=== PATIENT | female | born 1955 | race Caucasian/White ===

== ENCOUNTER 2020-08-19 10:59 | Outpatient (CLI) | payer OTHER, SELFPAY ==
--- NOTE | 2020-08-19 11:11 | US_ITS ---
WS: [id number] Subcutaneous ultrasound of the neck for lymphadenopathy, 08/19/2020 Clinical Data: R SUPRACLAVICULAR AREA Comparison: None. Findings: There are numerous lymph nodes on both sides of the neck. No cysts or masses are seen. The largest ri ght lymph node measures 0.69 x 0.99 x 1.08 cm. The largest left lymph node measures 0.62 x 0.67 x 0.9 3 cm. 5 lymph nodes measured on the right and 2 on the left. US/US soft tissue/extremity [id number] Impression: Lymphadenopathy of both sides of the neck, but the lymph nodes are not greatly enlarged.
== END 2020-08-19 11:00 | disposition home or self-care (01) ==
LOC: US 11:05
PROVIDERS: PCP Nurse Practitioner Family; Visit Provider Nurse Practitioner Family
DX: R59.0 Localized enlarged lymph nodes (principal)
CPT/HCPCS: 76882

== ENCOUNTER 2021-05-21 12:37 | Emergency (ER) | payer OTHER, SELFPAY ==
[2021-05-21 13:12] VITALS: BP 178/64; PULSE 79; RESP 19; TEMP 37.2; O2SAT 98; BMI 30.9
--- NOTE | 2021-05-21 14:04 | ED_ITS ---
HPI - Allergic Reaction General: Chief complaint: Allergic Reaction Stated complaint: RASH ON WAIST, BACK, BUTTOCKS, GROIN Time Seen by Provider: 05/21/21 13:24 History of Present Illness: HPI narrative: Patient recently treated for allergic reaction possibly to psych medicines. Patient has spots on her back left hip groin and leg areas. That have itch. Patient denies hives. Patient says she did better on higher dose of prednisone quit taking her cetirizine now she has itching again. MD complaint: other (Itching rash) Onset (ago): day(s) Exposure: insect bite (Patient does have 7 cats. Does have animals at present with scratching) Associated symptoms: Reports no associated symptoms; Deny abdominal pain, nausea or vomiting Treatment prior to arrival: other Review of Systems Const: Denies: fever(s), chills or body aches Eyes: Denies: change in vision or blurry vision ENMT: Denies: throat pain or nasal congestion Card: Denies: chest pain or dyspnea on exertion Resp: Denies: dyspnea, productive cough or non-productive cough GI: Denies: abdominal pain, nausea or vomiting Musc: Denies: extremity pain Skin/Breast: Reports: rash and pruritus Neuro: Denies: headache(s) Psych: Denies: anxiety or depression Herrera/Lymph: Denies: easy bruising Physical Exam Const: COMMON NORMALS: no acute distress Psych: COMMON NORMALS: mental status grossly normal Skin: OTHER: Does have scattered maculopapular areas consistent with insect bites. No hives noted. And these bites are no particular pattern. Peer to be more the left side posterior. Course Vital Signs: Vital signs: Vital Signs Temperature 98.9 F 05/21/21 13:12 Pulse Rate 79 05/21/21 13:12 Respiratory Rate 19 H 05/21/21 13:12 Blood Pressure 178/64 05/21/21 13:12 Pulse Oximetry 98 05/21/21 13:12 Discharge Plan Discharge Patient Disposition: Home Clinical Impression: Bites and stings, insect Qualifiers: Encounter type: initial encounter Qualified Code(s): W57.XXXA - Bitten or stung by nonvenomous insect and other nonvenomous arthropods, initial encounter Condition: Stable Prescriptions: New triamcinolone acetonide 0.1 % lotion 1 applic topical BID Qty: 60 RF: 0 prednisone 20 mg tablet 20 mg PO DAILY Qty: 7 RF: 0 Discharge Orders: Discharge ED (Routine); Ordered 05/21/21 Ordered By: Mayur Garcia Referrals: Barbara Underwood NP [Primary Care Provider] - Discharge Diet: Usual diet Discharge Activity: Resume usual activity Activity Restrictions/Additional Instructions: Follow-up with medical provider as directed. Take medications as prescribed. Return to the ER or your medical provider if condition worsens. Please read and understand discharge instructions. If any questions ask please. Coding Level of Care Code ED Helicopter Repairer for Johnny Mcgowan
== END 2021-05-21 14:23 | disposition home or self-care (01) ==
PROVIDERS: Emergency Provider Nurse Practitioner Family; PCP Nurse Practitioner Family
DX: T14.8XXA Other injury of unspecified body region, initial encounter (principal); W57.XXXA Bitten or stung by nonvenomous insect and other nonvenomous arthropods, initial encounter
CPT/HCPCS: 99281

== ENCOUNTER 2021-08-30 16:18 | Outpatient (CLI) | payer MEDICARE, OTHER, SELFPAY ==
--- NOTE | 2021-08-30 16:26 | XR_ITS ---
WS: [id number] LEFT KNEE: 3 VIEW(S) TECHNIQUE: AP, oblique(s) and lateral. HISTORY: PAIN IN LEFT KNEE COMPARISON: None available. No fracture or dislocation. No joint space narrowing or osteophytes. No joint effusion. No soft tissue abnormality. XR/XR knee LT 3V* [id number] IMPRESSION: Normal LEFT knee.
== END 2021-08-30 16:19 | disposition home or self-care (01) ==
PROVIDERS: PCP Nurse Practitioner Family; Visit Provider Nurse Practitioner Family
DX: M25.562 Pain in left knee (principal)
CPT/HCPCS: 73562

== ENCOUNTER 2021-08-31 16:04 | Outpatient (CLI) | payer MEDICARE, SELFPAY ==
--- NOTE | 2021-08-31 | USCV_ITS ---
Clara Rajput Age: 65 Gender: F : 1955 Exam Date: 08/31/2021 16:36 Ordering Phys: Barbara Underwood NP Technologist: [place] [facility] [place] Indication: EDEMA, LEFT PROCEDURES: Venous duplex imaging was performed in only the left lower extremity. The following venous structures were evaluated: common femoral vein, profunda vein, proximal portion of the greater saphenous vein, superficial femoral vein, and the popliteal vein. In addition, the posterior tibial and peroneal trunk were evaluated. Serial compression, augmentation maneuvers, and spectral Doppler flow evaluation were performed. FINDINGS: Normal 2-D Doppler and augmentation and compressibility throughout the lower extremity venous structures. Additional imaging through the proximal calf veins also reveals no thrombus. Limited evaluation of the greater saphenous vein is patent with no thrombus.. There appears to be a bakers cyst noted medial to the left popliteal vein. CONCLUSIONS No evidence of left lower extremity DVT. Popliteal cyst measuring 2.5 x 1.8 x 3.9 cm with internal debris and septations Jace Faustin MD (Electronically Signed) Final Date: 01 September 2021 10:46 S
== END 2021-08-31 16:05 | disposition home or self-care (01) ==
LOC: RAD 16:11
PROVIDERS: PCP Nurse Practitioner Family; Visit Provider Nurse Practitioner Family
DX: R60.0 Localized edema (principal); M71.22 Synovial cyst of popliteal space [Baker], left knee
CPT/HCPCS: 93971

== ENCOUNTER 2022-01-23 13:11 | Outpatient (CLI) | payer MEDICARE, OTHER, SELFPAY ==
--- NOTE | 2022-01-23 13:20 | MM_ITS ---
WS: [id number] VIEWS: MLO and CC views both breasts. 3-D tomosynthesis also included in the study Comparison made with prior exam of 11/25/2014. Findings: There was no sign of mass, architectural distortion or suspicious calcification in either breast. Sc attered fibroglandular densities MM/[place] [id number] Impression: BI-RADS: 2-Benign FOLLOW-UP: 1 Year Follow-up This mammogram was also analyzed by the Computer Aided Detection System R2 Imag e Service Desk Lead.
== END 2022-01-23 13:12 | disposition home or self-care (01) ==
LOC: RAD 13:14
PROVIDERS: PCP Nurse Practitioner Family; Visit Provider Nurse Practitioner Family
DX: Z12.31 Encounter for screening mammogram for malignant neoplasm of breast (principal)
CPT/HCPCS: 77063; 77067

== ENCOUNTER 2022-03-09 22:18 | Emergency (ER) | payer MEDICARE, OTHER, SELFPAY ==
[2022-03-09 22:54] VITALS: BP 150/71; PULSE 83; RESP 20; TEMP 36.7; O2SAT 98; BMI 29.0
[2022-03-09 22:59] VITALS: BP 152/70; PULSE 81; RESP 18; O2SAT 96
--- NOTE | 2022-03-09 23:06 | ED_ITS ---
HPI - General Adult General: Chief complaint: General Medical Stated complaint: Snake bite on right ankle Time Seen by Provider: 03/09/22 23:03 Source: patient Mode of arrival: ambulatory Limitations: no limitations History of Present Illness: 66-year-old female who was bit by a copperhead snake little over an hour ago. States she was walking on her garage and got bit to her left ankle. She believes it was a copperhead but did not see it fully does have 2 puncture wounds some slight swelling to the ankle she states she has pain in ankle she rates a 4 out of 10 denies any pain elsewhere no vomiting no diarrhea Associated symptoms: Deny chest pain, dyspnea, headache(s), nausea, rash or vomiting Review of Systems Const: Denies: fever(s), chills, body aches or change in appetite Eyes: Denies: blurry vision or eye discomfort ENMT: Denies: throat pain or dental pain Card: Denies: chest pain Resp: Denies: dyspnea GI: Denies: abdominal pain, nausea, vomiting or diarrhea : Denies: dysuria Musc: Reports: extremity pain Skin/Breast: Denies: rash Neuro: Denies: headache(s) Psych: Denies: depression Herrera/Lymph: Denies: easy bruising All/Imm: Denies: urticaria PFSH ED PFSH: Medical History (Updated 03/10/22 @ 00:29 by Gustavo Ledezma MD) Hypertension Social History Smoking and tobacco status: current every day smoker Physical Exam Const: COMMON NORMALS: no acute distress, patient oriented x3 and healthy appearing HENMT: COMMON NORMALS: normocephalic and atraumatic HEAD & SCALP: normocephalic and atraumatic Eye: COMMON NORMALS: Equal, round and reactive pupils present and EOMs intact bilaterally PUPIL: Yes Equal, round and reactive pupils present Neck/C-Spine: COMMON NORMALS: full ROM and supple Chest: COMMONS NORMALS: normal inspection of the chest and normal palpation of entire chest wall Resp: COMMON NORMALS: normal respiratory effort, No retractions, No use of accessory muscles and clear to auscultation bilaterally AUSCULTATION: clear to auscultation bilaterally Cardio: COMMON NORMALS: regular rate, regular rhythm and No murmurs present (Cardio) RATE: regular rate RHYTHM: regular rhythm GI: COMMON NORMALS: Normal to inspection, nondistended, normoactive bowel sounds present, Soft to palpation, non-tender and no masses PALPATION: Yes Soft to palpation Extremity: NARRATIVE EXTREMITY EXAM: Snake bite to left medial ankle slight swelling is minimal at this time Neuro: COMMON NORMALS: patient oriented x3, moves all extremities and no focal motor deficits Psych: COMMON NORMALS: mental status grossly normal, Normal thought process present and cooperative THOUGHT PROCESS: Normal thought process present Skin: COMMON NORMALS: no rashes or lesions noted and no wounds GENERAL SKIN EXAM: no rashes or lesions noted Course Vital Signs: Vital signs: Vital Signs Temperature 98.1 F 03/09/22 22:54 Pulse Rate 83 03/09/22 22:54 Respiratory Rate 18 03/09/22 23:48 Blood Pressure 150/71 03/09/22 22:54 Pulse Oximetry 96 03/09/22 23:48 MDM - General Adult Medical Decision Making Patient presents with a snakebite to right foot observed here for over 2 hours she has had no change in her swelling is very minimal blood work is normal she stable for discharge follow-up with PCP and return if worsening Lab Data : 03/09/22 23:05 03/09/22 23:05 Laboratory Results WBC 10.9 10^3/uL (4.0-10.0) H 03/09/22 23:05 RBC 4.67 10^6/uL (4.1-5.3) 03/09/22 23:05 Hgb 14.0 g/dL (11.5-15.3) 03/09/22 23:05 Hct 42.2 % (37.0-47.0) 03/09/22 23:05 MCV 90.4 fl (81-99) 03/09/22 23:05 MCH 30.0 pg (28.0-34.0) 03/09/22 23:05 MCHC 33.2 g/dL (30.0-36.0) 03/09/22 23:05 RDW 13.5 % (12.1-15.1) 03/09/22 23:05 Plt Count 298 10^3/cmm (130-400) 03/09/22 23:05 MPV 10.1 fL (7.4-10.4) 03/09/22 23:05 Neut % (Auto) 48.9 % 03/09/22 23:05 Lymph % (Auto) 38.2 % 03/09/22 23:05 [place] % (Auto) 8.2 % 03/09/22 23:05 Eos % (Auto) 3.9 % 03/09/22 23:05 Baso % (Auto) 0.6 % 03/09/22 23:05 Neut # (Auto) 5.34 10^3/uL (1.8-7.7) 03/09/22 23:05 Lymph # (Auto) 4.2 10^3/uL (0.8-4.8) 03/09/22 23:05 [place] # (Auto) 0.9 10^3/uL (0.2-0.9) 03/09/22 23:05 Eos # (Auto) 0.4 10^3/uL (0.0-0.8) 03/09/22 23:05 Baso # (Auto) 0.1 10^3/uL (0.0-0.1) 03/09/22 23:05 Nucleated RBC % (auto) 0 % 03/09/22 23:05 Nucleated RBCs # 0.0 /100WBC 03/09/22 23:05 PT 13.40 SECONDS (12.1-14.9) 03/09/22 23:05 INR 0.99 (0.8-1.2) 03/09/22 23:05 Sodium 138 mmol/L (136-145) 03/09/22 23:05 Potassium 4.0 mmol/L (3.5-5.1) 03/09/22 23:05 Chloride 100 mmol/L (98-107) 03/09/22 23:05 Carbon Dioxide 25 mmol/L (22-29) 03/09/22 23:05 Anion Gap 17.0 (5-19) 03/09/22 23:05 BUN 27 mg/dL (8-23) H 03/09/22 23:05 Creatinine 0.8 mg/dL (0.5-0.9) 03/09/22 23:05 GFR Calculation 71.8 mL/min (90-130) L 03/09/22 23:05 Glucose 124 mg/dL (65-115) H 03/09/22 23:05 Calculated Osmolality 293 mOsm/kg (285-295) 03/09/22 23:05 Calcium 9.6 mg/dL (8.5-10.5) 03/09/22 23:05 Total Bilirubin 0.2 mg/dL (0.15-1.2) 03/09/22 23:05 AST 16 U/L (0-32) 03/09/22 23:05 ALT 18 U/L (0-33) 03/09/22 23:05 Alkaline Phosphatase 96 IU/L (35-105) 03/09/22 23:05 Total Protein 7.3 g/dL (6.6-8.7) 03/09/22 23:05 Albumin 4.7 g/dL (3.5-5.2) 03/09/22 23:05 Globulin 2.6 g/dL (1.3-4.6) 03/09/22 23:05 Discharge Plan Discharge Patient Disposition: Home Clinical Impression: Bite, snake Qualifiers: Encounter type: initial encounter Qualified Code(s): W59.11XA - Bitten by nonvenomous snake, initial encounter Condition: Stable Prescriptions: New hydrocodone-acetaminophen 5-325 mg tablet 1 tab PO Q6H PRN (Reason: pain) Qty: 14 0RF No Action valsartan 160 mg tablet 160 mg PO DAILY 0RF amlodipine 10 mg tablet 10 mg PO DAILY 0RF IDAPAMINE 1 tab PO DAILY 0RF buspirone 5 mg tablet 5 mg PO DAILY 0RF gabapentin 300 mg capsule 300 mg PO BID 0RF atorvastatin 40 mg tablet 40 mg PO DAILY 0RF carvedilol 12.5 mg Tablet 12.5 mg PO BID 0RF tramadol 50 mg Tablet 50 mg PO BID PRN (Reason: Pain) 0RF Discharge Orders: Discharge ED (Routine); Ordered 03/10/22 Ordered By: Gustavo Ledezma Referrals: Barbara Underwood NP [Primary Care Provider] - 1-3 days Discharge Diet: Advance as tolerated Discharge Activity: Resume usual activity Patient Instructions: Snake Bite (ED), Opioid Safety Stand Alone Forms: Work/School Release Coding Level of Care Code ED Cna Instructor for [facility] Fwd Exam Comprehensive
[2022-03-09 23:25] LABS: Basophils # 0.1 10^3/uL (0.0-0.1); Basophils % 0.6 %; Eosinophils # 0.4 10^3/uL (0.0-0.8); Eosinophils % 3.9 %; Hematocrit 42.2 % (37.0-47.0); Lymphocytes # 4.2 10^3/uL (0.8-4.8); Lymphocytes % 38.2 %; Mean Corpuscular HGB Conc 33.2 g/dL (30.0-36.0); Mean Corpuscular Volume 90.4 fl (81-99); Mean Platelet Volume 10.1 fL (7.4-10.4); Monocytes # 0.9 10^3/uL (0.2-0.9); Monocytes % 8.2 %; Neutrophils # 5.34 10^3/uL (1.8-7.7); Neutrophils % 48.9 %; Nucleated Red Blood Cells % 0 %; Platelet Count 298 10^3/cmm (130-400); Red Blood Count 4.67 10^6/uL (4.1-5.3); Red Cell Distribution Width 13.5 % (12.1-15.1); White Blood Count 10.9 10^3/uL (4.0-10.0)
[2022-03-09 23:29] VITALS: BP 159/62; PULSE 77; RESP 18; O2SAT 96
[2022-03-09 23:30] VITALS: BP 158/58; PULSE 72; RESP 18; O2SAT 95
[2022-03-09 23:36] LABS: INR 0.99 (0.8-1.2)
[2022-03-09 23:40] LABS: Alanine Aminotransferase 18 U/L (0-33); Albumin Level 4.7 g/dL (3.5-5.2); Alkaline Phosphatase 96 IU/L (35-105); Aspartate Amino Transferase 16 U/L (0-32); Blood Urea Nitrogen 27 mg/dL (8-23); Calcium 9.6 mg/dL (8.5-10.5); Carbon Dioxide 25 mmol/L (22-29); Chloride 100 mmol/L (98-107); Globulin 2.6 g/dL (1.3-4.6); Glomerular Filtration Rate 71.8 mL/min (90-130); Glucose 124 mg/dL (65-115); Osmolality Calculated 293 mOsm/kg (285-295); Sodium 138 mmol/L (136-145); Total Bilirubin 0.2 mg/dL (0.15-1.2); Total Protein 7.3 g/dL (6.6-8.7)
[2022-03-09 23:48] VITALS: RESP 18; O2SAT 96
[2022-03-09] MEDS: ondansetron 2 mg/ML SDV 2 mL 4 MG IVP (23:48)
[2022-03-09] MEDS: morphine 4 mg/mL SDV 1 mL IVP (23:48)
[2022-03-09 23:59] VITALS: BP 156/69; PULSE 81; RESP 18; O2SAT 94
[2022-03-10] VITALS: BP 161/69; PULSE 77; RESP 18; O2SAT 95
[2022-03-10 00:40] VITALS: BP 144/76; PULSE 76; RESP 18; O2SAT 94
[2022-03-10] MEDS: HYDROcodone-acetaminophen 5-325 mg Tablet 1 TAB PO (00:45)
== END 2022-03-10 00:40 | disposition home or self-care (01) ==
PROVIDERS: Emergency Provider Emergency Medicine; PCP Nurse Practitioner Family
DX: T63.001A Toxic effect of unspecified snake venom, accidental (unintentional), initial encounter (principal); I10 Essential (primary) hypertension
CPT/HCPCS: 80053; 85025; 85610; 96374; 96375; 99284; J2270; J2405

== ENCOUNTER 2022-03-27 12:57 | Outpatient (CLI) | payer MEDICARE, OTHER, SELFPAY ==
--- NOTE | 2022-03-27 | CT_ITS ---
WS: [id number] LDCT LUNG CANCER SCREENING TECHNIQUE: Noncontrast CT of the chest with coronal and sagittal reformatted images. CLINICAL INFORMATION: SCREENING. TOBACCO USER COMPARISON: None. DLP: 72.52 mGy.cm DIvol: Mean CTDIvol: 1.60 (mGy) All CT scans at [facility] use at least one of these dose optimization techniques: automat ed exposure control; mA and/or kV adjustment per patient size (includes targeted exams where dose is matched to clinical indication); or iterative reconstruction. FINDINGS: Mild aortic calcification. Normal caliber thoracic aorta. No mediastinal or hilar lymphadenopathy. No axillary lymphadenopathy. Adrenal glands are normal. Normal GE junction. Mild thoracic curve. Multiple noncalcified pulmonary opacities the largest measuring 6-7 mm RIGHT lower lobe and LEFT uppe r lobe. Some of these are subpleural in location and may be inflammatory/fibrotic but nonspecific. Re commend 3 month follow-up LDCT. Fibrosis with subsegmental atelectasis in the RIGHT middle lobe with slight traction bronchiectasis. CT/CT lung screening [id number] IMPRESSION: LUNG-RADS: 4A-Probably Suspicious FOLLOW UP: 3 Month LDCT
== END 2022-03-27 12:58 | disposition home or self-care (01) ==
PROVIDERS: PCP Nurse Practitioner Family; Visit Provider Nurse Practitioner Family
DX: Z12.2 Encounter for screening for malignant neoplasm of respiratory organs (principal); F17.210 Nicotine dependence, cigarettes, uncomplicated
CPT/HCPCS: 71271

== ENCOUNTER 2023-01-04 07:38 | Outpatient (CLI) | payer MEDICARE, OTHER, SELFPAY ==
--- NOTE | 2023-01-04 07:52 | CT_ITS ---
WS: [id number] LDCT LUNG CANCER SCREENING HISTORY: SCREENING/OPACITY OF LUNG ON IMAGING STUDY TECHNIQUE: Axial imaging performed from the apices to 1 cm below the costophrenic angles. Coronal and sagittal reformats are submitted with axial MIP series. All CT scans at [facility] use at least one of these dose optimization techniques: automated exposure control; mA and/or kV adjustment per patient size (includes targeted exams where dose is matched to clinical indication); or iterativ e reconstruction. DLP: 82.47 mGy.cm DIvol: Mean CTDIvol: 1.60 (mGy) COMPARISON: 03/27/2022 Diagnostic quality: Satisfactory Lungs: Multiple bilateral noncalcified pulmonary nodules are reidentified. Bilateral posterior upper lobe pulmonary nodules are unchanged with the largest measuring 6 mm the LEFT upper lobe. RIGHT lower lobe pulmonary nodules are reidentified with the largest measuring 5 mm which are unchanged. New are as of groundglass attenuation in the periphery LEFT lower lobe. By mean diameter these measure less t june 3 cm. Small amount of mucus in the RIGHT trachea. Heart: Normal size heart. No pericardial effusion. Other findings: No adenopathy. Mild atherosclerosis aorta small hiatal hernia. Mild LEFT adrenal thic kening is stable. CT/CT lung screening [id number] IMPRESSION: LUNG-RADS: 3-Probably Benign FOLLOW UP: 6 Month LDCT OTHER FINDINGS (S MODIFIER): None. [address] follow-up recommended to reevaluate the groundglass opacifications w hich are new since 03/27/2022.
== END 2023-01-04 07:39 | disposition home or self-care (01) ==
PROVIDERS: PCP Family Medicine Adult Medicine; Visit Provider Family Medicine Adult Medicine
DX: Z12.2 Encounter for screening for malignant neoplasm of respiratory organs (principal); Z87.891 Personal history of nicotine dependence
CPT/HCPCS: 71271

== ENCOUNTER 2023-08-20 17:40 | Emergency (ER) | payer MEDICARE, OTHER, SELFPAY ==
--- NOTE | 2023-08-20 17:45 | XRR_ITS ---
PROCEDURE INFORMATION: Exam: XR Chest Exam date and time: 08/20/2023 5:51 PM Age: 67 years old Clinical indication: Other: Syncope TECHNIQUE: Imaging protocol: Radiologic exam of the chest. Views: 1 view. COMPARISON: CT lung screening [id number] 01/04/2023 8:07 AM FINDINGS: Lungs: Lungs are clear. Pleural spaces: There is no pleural effusion or pneumothorax. Heart/Mediastinum: Cardiomediastinal contours are unremarkable. Bones/joints: Thoracolumbar scoliosis. Disc degeneration in the upper lumbar spine. No acute osseous abnormality. XR/XR chest 1V portable [id number] IMPRESSION: No acute findings.
[2023-08-20 17:46] VITALS: BP 110/56; PULSE 63; RESP 18; TEMP 36.6; O2SAT 92; BMI 27.6
--- NOTE | 2023-08-20 17:58 | W.ED.NAVMDI ---
HPI - Nausea/Vomiting/Diarrhea General: Chief complaint: Nausea/Vomiting/Diarrhea Stated complaint: near syncope Time Seen by Provider: 08/20/23 17:41 Source: patient and EMS Mode of arrival: EMS Limitations: no limitations History of Present Illness: 67-year-old female states that she had her flu shot this morning states since then she has been having some vomiting diarrhea states she had went to eat tonight and felt lightheaded had a near syncopal event did not pass out though. She denies any fevers denies any abdominal pain she does have a history of asthma states she had some slight increased wheezing she got a breathing treatment in route and feels improved. Associated nausea: Yes Associated symtoms: Reports nausea and syncope; Denies chest pain, dysuria or headache(s) Review of Systems Const: Denies: fever(s), chills, body aches or change in appetite ENMT: Denies: throat pain or dental pain Card: Reports: syncope; Denies: chest pain Resp: Denies: dyspnea GI: Reports: nausea, vomiting and diarrhea; Denies: abdominal pain : Denies: dysuria Musc: Denies: neck pain or back pain Skin/Breast: Denies: rash Neuro: Denies: headache(s) PFSH ED PFSH: Medical History Allergic rhinitis due to allergen Anxiety Asthma Back pain COPD (chronic obstructive pulmonary disease) Early onset macular degeneration GERD (gastroesophageal reflux disease) Hyperlipidemia Hypertension Opacity of lung on imaging study Sciatica SVT (supraventricular tachycardia) Traumatic partial tear of left biceps tendon Surgical History History of cardiac radiofrequency ablation History of tonsillectomy and adenoidectomy Hx of hysterectomy Family History Father Alcoholism Cancer esophageal Mother CAD (coronary artery disease) PR Hypertension Grandfather CAD (coronary artery disease) PR Family/Other CAD (coronary artery disease) PR - uncle and aunt Alcoholism Cancer aunt--esophageal Sister Hypertension Denies family history of Diabetes Clotting disorder Dementia Hyperlipidemia Chronic kidney disease (CKD) Anesthesia complication Bleeding disorder Lung disease Stroke Social History Smoking and tobacco/nicotine status: current every day tobacco/nicotine user (0.5ppd) Alcohol intake: never Substance/Drug Use: never Caregiver/support person: No Lives independently: Yes Household members: none Marital status: Single Highest education level completed: Some College, No Degree service: No Current occupational status: employed 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 Do you think of yourself as: Straight/Heterosexual Current gender identity: Female Nelida/Moravian: Holiness Special nelida needs: No Agree to transfusion: Yes Physical Exam Const: COMMON NORMALS: no acute distress, patient oriented x3 and healthy appearing HENMT: COMMON NORMALS: normocephalic and atraumatic HEAD & SCALP: normocephalic and atraumatic Eye: COMMON NORMALS: Equal, round and reactive pupils present and EOMs intact bilaterally PUPIL: Yes Equal, round and reactive pupils present Neck/C-Spine: COMMON NORMALS: full ROM and supple Chest: COMMONS NORMALS: normal inspection of the chest and normal palpation of entire chest wall Resp: COMMON NORMALS: normal respiratory effort, No retractions and No use of accessory muscles EFFORT & INSPECTION: Yes audible wheezes Cardio: COMMON NORMALS: regular rate, regular rhythm and No murmurs present (Cardio) RATE: regular rate RHYTHM: regular rhythm GI: COMMON NORMALS: Normal to inspection, nondistended, normoactive bowel sounds present, Soft to palpation, non-tender and no masses PALPATION: Yes Soft to palpation Extremity: COMMON NORMALS: normal to inspection and full ROM Neuro: COMMON NORMALS: patient oriented x3, moves all extremities and no focal motor deficits Psych: COMMON NORMALS: mental status grossly normal, Normal thought process present and cooperative THOUGHT PROCESS: Normal thought process present Skin: COMMON NORMALS: no rashes or lesions noted and no wounds GENERAL SKIN EXAM: no rashes or lesions noted Course Vital Signs: Vital signs: Vital Signs Temperature 97.8 F 08/20/23 17:46 Pulse Rate 63 08/20/23 17:46 Respiratory Rate 18 08/20/23 17:46 Blood Pressure 110/56 08/20/23 17:46 Pulse Oximetry 92 08/20/23 17:46 Oxygen Delivery Me thod Room Air 08/20/23 17:46 MDM - Nausea/Vomiting/Diarrhea Medical Decision Making Patient presents here with diarrhea while near syncopal with likely related to her flu shot she feels improved after IV fluids patient stable for discharge to follow-up with PCP and return if worsening she understands agrees to plan. Medical Records I reviewed the patient's medical records. Lab Data I reviewed the patient's lab results. 08/20/23 17:32 08/20/23 17:32 Radiology Impressions Chest X-Ray 08/20/23 17:45 IMPRESSION: No acute findings. Laboratory Results WBC 7.65 10^3/uL (3.29-11.43) 08/20/23 17:32 RBC 4.64 10^6/uL (3.85-5.65) 08/20/23 17:32 Hgb 13.80 g/dL (11.27-16.99) 08/20/23 17: Hct 41.2 % (36-47) 08/20/23 17:32 MCV 88.8 fl (85-98) 08/20/23 17: MCH 29.7 pg (27-33) 08/20/23 17: MCHC 33.5 g/dL (30-55) 08/20/23 17:32 RDW 13.5 % (12.1-15.1) 08/20/23 17:32 Plt Count 273 10^3/cmm (157-399) 08/20/23 17:32 MPV 9.8 fL (7.4-10.4) 08/20/23 17:32 Neut % (Auto) 56.8 % 08/20/23 17:32 Lymph % (Auto) 30.8 % 08/20/23 17:32 [place] % (Auto) 7.7 % 08/20/23 17:32 Eos % (Auto) 3.9 % 08/20/23 17:32 Baso % (Auto) 0.5 % 08/20/23 17:32 Neut # (Auto) 4.34 10^3/uL (1.8-7.7) 08/20/23 17:32 Lymph # (Auto) 2.4 10^3/uL (0.8-4.8) 08/20/23 17:32 [place] # (Auto) 0.6 10^3/uL (0.2-0.9) 08/20/23 17:32 Eos # (Auto) 0.3 10^3/uL (0.0-0.8) 08/20/23 17:32 Baso # (Auto) 0.0 10^3/uL (0.0-0.1) 08/20/23 17:32 Nucleated RBC % (auto) 0 % 08/20/23 17:32 Nucleated RBCs # 0.0 /100WBC 08/20/23 17:32 Sodium 140 mmol/L (136-145) 08/20/23 17:32 Potassium 3.8 mmol/L (3.5-5.1) 08/20/23 17:32 Chloride 105 mmol/L (98-107) 08/20/23 17:32 Carbon Dioxide 25 mmol/L (22-29) 08/20/23 17:32 Anion Gap 13.8 (5-19) 08/20/23 17:32 BUN 23 mg/dL (8-23) 08/20/23 17:32 Creatinine 0.8 mg/dL (0.5-0.9) 08/20/23 17:32 GFR Calculation 71.5 mL/min (90-130) L 08/20/23 17:32 Glucose 120 mg/dL (65-115) H 08/20/23 17:32 Calculated Osmolality 295 mOsm/kg (285-295) 08/20/23 17:32 Calcium 8.7 mg/dL (8.5-10.5) 08/20/23 17:32 Total Bilirubin 0.4 mg/dL (0.15-1.2) 08/20/23 17:32 AST 19 U/L (0-32) 08/20/23 17:32 ALT 19 U/L (0-33) 08/20/23 17:32 Alkaline Phosphatase 67 U/L (35-105) 08/20/23 17:32 Total Protein 6.3 g/dL (6.6-8.7) L 08/20/23 17:32 Albumin 4.1 g/dL (3.5-5.2) 08/20/23 17:32 Globulin 2.2 g/dL (1.3-4.6) 08/20/23 17:32 Lipase 49 U/L (13-60) 08/20/23 17:32 All radiology interpretation(s) finalized by discharge Discharge Plan Discharge Patient Disposition: Home Clinical Impression: Diarrhea, Near syncope Condition: Stable Prescriptions: New ondansetron 4 mg tablet,disintegrating 4 mg PO Q6H PRN (Reason: nausea and vomiting) Qty: 14 0RF No Action carvedilol 25 mg tablet 25 mg PO BID Qty: 180 1RF amlodipine 10 mg tablet 10 mg PO DAILY Qty: 90 1RF atorvastatin 40 mg tablet 40 mg PO DAILY Qty: 90 1RF albuterol sulfate [ProAir HFA] 90 mcg/actuation HFA aerosol inhaler 1 puff inhalation Q4H PRN (Reason: shortness of breath or wheezing) Qty: 17 1RF buspirone 5 mg tablet 5 mg PO TID Qty: 180 1RF clonidine HCl 0.1 mg tablet 0.1 mg PO Q12H PRN (Reason: hypertensive values) Qty: 90 1RF Rx Instructions: prn for BP> 160/90 escitalopram oxalate 10 mg tablet 10 mg PO DAILY Qty: 90 1RF famotidine 20 mg tablet 20 mg PO BID Qty: 180 1RF fluticasone propionate 50 mcg/actuation spray,suspension 2 spray intranasal DAILY Qty: 48 1RF gabapentin 300 mg capsule 300 mg PO TID Qty: 270 1RF hydralazine 10 mg tablet 10 mg PO TID Qty: 270 1RF hydroxyzine HCl 25 mg tablet 25 mg PO TID PRN (Reason: itching/anxiety) Qty: 270 1RF indapamide 1.25 mg tablet 1.25 mg PO DAILY Qty: 90 1RF spironolactone 25 mg tablet 12.5 mg PO DAILY Qty: 45 1RF valsartan 320 mg tablet 320 mg PO DAILY Qty: 90 1RF fluticasone propion-salmeterol [Advair Diskus] 250-50 mcg/dose blister with device 1 inh inhalation BID Qty: 180 1RF Spiriva Respimat 2.5 mcg/actuation mist 2 puff inhalation DAILY 90 Days Qty: 12 3RF tramadol 50 mg tablet 50 mg PO BID PRN (Reason: pain) 30 Days Qty: 60 2RF Rx Instructions: Can refill on or after 30-day interval. Discharge Orders: Discharge ED (Routine); Ordered 08/20/23 Ordered By: Gustavo Ledezma Referrals: Michael Hui MD [Primary Care Provider] - 1-3 days Discharge Diet: Advance as tolerated Discharge Activity: Resume usual activity Patient Instructions: Diarrhea - Adult, Near Syncope (ED) Coding Level of Care Code ED Polisher Balance Screwhead for Johnny Mcgowan
[2023-08-20 18:07] LABS: Basophils % 0.5 %; Eosinophils # 0.3 10^3/uL (0.0-0.8); Eosinophils % 3.9 %; Hematocrit 41.2 % (36-47); Lymphocytes # 2.4 10^3/uL (0.8-4.8); Lymphocytes % 30.8 %; Mean Corpuscular HGB Conc 33.5 g/dL (30-55); Mean Corpuscular Hemoglobin 29.7 pg (27-33); Mean Corpuscular Volume 88.8 fl (85-98); Mean Platelet Volume 9.8 fL (7.4-10.4); Monocytes # 0.6 10^3/uL (0.2-0.9); Monocytes % 7.7 %; Neutrophils # 4.34 10^3/uL (1.8-7.7); Neutrophils % 56.8 %; Nucleated Red Blood Cells % 0 %; Platelet Count 273 10^3/cmm (157-399); Red Blood Count 4.64 10^6/uL (3.85-5.65); Red Cell Distribution Width 13.5 % (12.1-15.1); White Blood Count 7.65 10^3/uL (3.29-11.43)
[2023-08-20] MEDS: sodium chloride 0.9% 1,000 ML 999 ML IV (18:11)
[2023-08-20] MEDS: dexamethasone 10 mg/mL INJ IVP (18:12)
--- NOTE | 2023-08-20 18:15 | ECG_ITS ---
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 Measurements Intervals [place] Rate: 59 P: 69 WV: 178 QRS: 56 QRSD: 104 T: 45 QT: 439 QTc: 438 Interpretive Statements SINUS BRADYCARDIA POSSIBLE LEFT ATRIAL ENLARGEMENT [-0.1mV P-WAVE IN V1/V2] Compared to ECG 08/12/2019 09:38:51 Sinus rhythm no longer present Electronically Signed On 08-20-2023 21:14:58 CDT by Ruth Ward M.D. [email or web address].[id number]
[2023-08-20 18:23] LABS: Alanine Aminotransferase 19 U/L (0-33); Albumin Level 4.1 g/dL (3.5-5.2); Alkaline Phosphatase 67 U/L (35-105); Anion Gap 13.8 (5-19); Aspartate Amino Transferase 19 U/L (0-32); Blood Urea Nitrogen 23 mg/dL (8-23); Calcium 8.7 mg/dL (8.5-10.5); Carbon Dioxide 25 mmol/L (22-29); Chloride 105 mmol/L (98-107); Globulin 2.2 g/dL (1.3-4.6); Glomerular Filtration Rate 71.5 mL/min (90-130); Glucose 120 mg/dL (65-115); Lipase 49 U/L (13-60); Osmolality Calculated 295 mOsm/kg (285-295); Potassium 3.8 mmol/L (3.5-5.1); Sodium 140 mmol/L (136-145); Total Bilirubin 0.4 mg/dL (0.15-1.2); Total Protein 6.3 g/dL (6.6-8.7)
== END 2023-08-20 18:53 | disposition home or self-care (01) ==
PROVIDERS: Emergency Provider Emergency Medicine; PCP Family Medicine Adult Medicine
DX: R55 Syncope and collapse (principal); R19.7 Diarrhea, unspecified; F17.210 Nicotine dependence, cigarettes, uncomplicated; J44.9 Chronic obstructive pulmonary disease, unspecified; E78.5 Hyperlipidemia, unspecified; I10 Essential (primary) hypertension
CPT/HCPCS: 71045; 80053; 83690; 85025; 93005; 96361; 96374; 99285; J1100; J7030

== ENCOUNTER → 2024-03-27 10:59 | Outpatient (BNVA) | payer MEDICARE, OTHER, SELFPAY | PROVIDERS: PCP Family Medicine Adult Medicine; Visit Provider Student in an Organized Health Care Education/Training Program | DX: M17.12 Unilateral primary osteoarthritis, left knee | CPT/HCPCS: 73560; 73565 ==

== ENCOUNTER 2024-03-27 11:52 | Outpatient (CLI) | payer MEDICARE, OTHER, SELFPAY | END 2024-03-27 11:53 | disposition home or self-care (01) | LOC: SPT 11:54 | PROVIDERS: PCP Family Medicine Adult Medicine; Visit Provider Student in an Organized Health Care Education/Training Program | DX: Z46.89 Encounter for fitting and adjustment of other specified devices (principal); M17.12 Unilateral primary osteoarthritis, left knee; G89.29 Other chronic pain; M25.562 Pain in left knee | CPT/HCPCS: 20610; 97760; 99204; J3301; L1851 ==

== ENCOUNTER → 2024-04-01 13:28 | Outpatient (BNVA) | payer MEDICARE, OTHER, SELFPAY | PROVIDERS: PCP Family Medicine Adult Medicine; Visit Provider Nurse Practitioner | DX: I10 Essential (primary) hypertension; E78.5 Hyperlipidemia, unspecified; R73.9 Hyperglycemia, unspecified | CPT/HCPCS: 80053; 80061; 83036; 84443; 85025 ==

== ENCOUNTER 2024-04-18 08:53 | Outpatient (CLI) | payer MEDICARE, OTHER, SELFPAY ==
--- NOTE | 2024-04-18 13:00 | MM_ITS ---
WS: [id number] VIEWS: MLO and CC views both breasts. 3D digital tomosynthesis is also included in this exam. Comparison made with prior exam of 11/25/2014, 01/23/2022.. Findings: There was no sign of mass, architectural distortion or suspicious calcification in either breast. The breasts are heterogeneously dense which may obscure small masses MM/[place] [id number] Impression: BI-RADS: 2-Benign finding. FOLLOW-UP: 1 Year Follow-up This mammogram was also analyzed by the Computer Aided Detection System R2 Imag e Elementary Science Teacher.
--- NOTE | 2024-04-18 14:00 | XR_ITS ---
WS: [id number] SCREENING DEXA SCAN [employer] CLINICAL INFORMATION: Z78.0 - Asymptomatic menopausal state COMPARISON: None. FINDINGS: The L1-L4 bone mineral density measures 1.469 g/cm2. This corresponds to a T score score of 2.4 and Z score of 3.9. Left femoral neck bone mineral density measures 1.172 g/cm2. This corresponds to a T score of 1.3 and Z score of 2.5. Right femoral neck bone mineral density measures 1.186 g/cm2. This corresponds to a T score 1.4of and Z score of 2.6. Mean femoral neck bone mineral density measures 1.179 g/cm2. This corresponds to a T score of 1.4 and Z score of 2.6. XR/XR DEXA axial skeleton* [id number] IMPRESSION: Normal bone mineralization. Patient's FRAX calculated 10 year probability for major osteoporotic fracture i s 7.2% and osteoporotic hip fracture is 0.7%.
== END 2024-04-18 08:54 | disposition home or self-care (01) ==
LOC: RAD 08:54
PROVIDERS: PCP Family Medicine Adult Medicine; Visit Provider Nurse Practitioner
DX: Z78.0 Asymptomatic menopausal state (principal); Z12.31 Encounter for screening mammogram for malignant neoplasm of breast
CPT/HCPCS: 77063; 77067; 77080

== ENCOUNTER → 2024-08-04 15:41 | Outpatient (BNVA) | payer MEDICARE, OTHER, SELFPAY | PROVIDERS: PCP Family Medicine Adult Medicine; Visit Provider Nurse Practitioner | DX: M41.85 Other forms of scoliosis, thoracolumbar region (principal); R06.2 Wheezing | CPT/HCPCS: 71046 ==

== ENCOUNTER 2024-08-23 00:27 | Emergency (ER) | payer MEDICARE, OTHER, SELFPAY ==
[2024-08-23] VITALS (8 sets, daily range): BP systolic 142–189; BP diastolic 55–93; PULSE 69–78; RESP 17–18; TEMP 36.4; O2SAT 93–97; BMI 29.6
--- NOTE | 2024-08-23 00:36 | ECG_ITS ---
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 Measurements Intervals [place] Rate: 82 P: 74 OR: 142 QRS: 68 QRSD: 106 T: 59 QT: 382 QTc: 446 Interpretive Statements SINUS RHYTHM MODERATE ST DEPRESSION [0.05+ mV ST DEPRESSION] Compared to ECG 08/20/2023 18:15:39 ST (T wave) deviation now present Sinus bradycardia no longer present Electronically Signed On 08-25-2024 00:11:06 CDT by Edelmira Keller M.D. [id number]
--- NOTE | 2024-08-23 01:07 | XRR_ITS ---
PROCEDURE INFORMATION: Exam: XR Chest Exam date and time: 08/23/2024 1:10 AM Age: 68 years old Clinical indication: Shortness of breath; Prior surgery; Surgery date: 6+ months; Surgery type: Cardiac node ablation; Patient HX: C/O SOB. History of copd. ; Additional info: Dyspnea TECHNIQUE: Imaging protocol: Radiologic exam of the chest. Views: 1 view. COMPARISON: CR XR chest 2V* [id number] 08/04/2024 3:55 PM FINDINGS: Lungs: No consolidation. Pleural spaces: No pleural effusion. No pneumothorax. Heart/Mediastinum: No cardiomegaly. Bones/joints: No acute findings. XR/XR chest 1V portable [id number] IMPRESSION: No acute chest findings.
[2024-08-23 01:11] LABS: Basophils % 0.5 %; Eosinophils # 0.4 10^3/uL (0.0-0.8); Eosinophils % 5.7 %; Hematocrit 43.9 % (36-47); Lymphocytes # 1.5 10^3/uL (0.8-4.8); Lymphocytes % 24.7 %; Mean Corpuscular HGB Conc 31.9 g/dL (30-55); Mean Corpuscular Hemoglobin 29.4 pg (27-33); Mean Corpuscular Volume 92.2 fl (85-98); Monocytes # 0.5 10^3/uL (0.2-0.9); Monocytes % 7.7 %; Neutrophils # 3.75 10^3/uL (1.8-7.7); Neutrophils % 61.2 %; Nucleated Red Blood Cells % 0 %; Platelet Count 252 10^3/cmm (157-399); Red Blood Count 4.76 10^6/uL (3.85-5.65); Red Cell Distribution Width 14.2 % (12.1-15.1); White Blood Count 6.12 10^3/uL (3.29-11.43)
--- NOTE | 2024-08-23 01:12 | W.ED.SOB ---
HPI - SOB/Dyspnea General: Chief Complaint: Shortness of Breath/Dyspnea Stated Complaint: SOB cant breathe Time Seen by Provider: 08/23/24 00:48 History of Present Illness: HPI Narrative: Patient presents to the ER with worsening shortness of breath. And wheezing. Patient says she has been having this for about the last month. Patient was seen in urgent care at the beginning of the month prescribed doxycycline and prednisone she said it did not help very much at all still been battling this. Patient does have a history of asthma and COPD. Patient on multiple nebulizers and breathing treatments throughout the day. Patient does have home oxygen to use if she needs it but she has not been needing it. Patient denies any fevers chills Related Data Previous Rx's Medication Instructions Recorded clonidine HCl 0.1 mg tablet 0.1 mg PO Q12H PRN hypertensive 09/12/23 values #60 tabs Left Knee (medial) English Division Chair Brace #1 ea 03/27/24 albuterol sulfate 90 mcg/actuation 1 puff inhalation Q4H PRN 04/01/24 aerosol inhaler (ProAir HFA) shortness of breath or wheezing #17 grams amlodipine 10 mg tablet 10 mg PO DAILY blood pressure #90 04/01/24 tabs atorvastatin 40 mg tablet 40 mg PO .at bedtime #90 tabs 04/01/24 buspirone 5 mg tablet 5 mg PO BID #180 tabs 04/01/24 carvedilol 25 mg tablet 25 mg PO BID heart #180 tabs 04/01/24 escitalopram oxalate 10 mg tablet 10 mg PO DAILY #90 tabs 04/01/24 famotidine 20 mg tablet 20 mg PO BID acid reflux #180 tabs 04/01/24 fluticasone 250 mcg-salmeterol 50 1 inh inhalation BID breathing 04/01/24 mcg/dose blistr powdr for #180 ea inhalation (Advair Diskus) fluticasone propionate 50 2 spray intranasal DAILY allergies 04/01/24 mcg/actuation nasal #16 grams spray,suspension gabapentin 300 mg capsule 300 mg PO .at bedtime PRN pain #90 04/01/24 caps hydralazine 25 mg tablet 25 mg PO Q12H hypertension #180 04/01/24 tabs spironolactone 25 mg tablet 25 mg PO DAILY heart #90 tabs 04/01/24 tiotropium bromide 2.5 2 puff inhalation DAILY 90 days 04/01/24 mcg/actuation mist for inhalation #12 grams (Spiriva Respimat) tramadol 50 mg tablet 100 mg (2 x 50 mg) PO .in AM pain 04/01/24 #60 tabs valsartan 320 mg tablet 320 mg PO DAILY blood pressure #90 04/01/24 tabs Abrysvo (PF) 120 mcg/0.5 mL 0.5 ml IM ONCE #1 ea 07/22/24 intramuscular solution (RSV vac, preF A and preF B(PF)) doxycycline hyclate 100 mg tablet 100 mg PO BID 7 days #14 tabs 08/04/24 prednisone 20 mg tablet 40 mg (2 x 20 mg) PO DAILY 5 days 08/04/24 #10 tabs prednisone 50 mg tablet See Rx Instructions .Route 08/23/24 .COMPLEX #10 tabs Allergies Allergy/AdvReac Type Severity Reaction Status Date / Time Penicillins Allergy ALGY-Anaphy Verified 08/23/24 00:38 laxis Review of Systems General: Reports: 10 or more systems reviewed and unremarkable except in HPI and below PFSH ED PFSH: Medical History Smoker Left knee pain Localized osteoarthritis of left knee Allergic rhinitis due to allergen GERD (gastroesophageal reflux disease) Hyperlipidemia Opacity of lung on imaging study COPD (chronic obstructive pulmonary disease) Anxiety Early onset macular degeneration SVT (supraventricular tachycardia) Asthma Hypertension Traumatic partial tear of left biceps tendon Surgical History History of tonsillectomy and adenoidectomy Hx of hysterectomy History of cardiac radiofrequency ablation Family History Father Alcoholism Cancer esophageal Mother CAD (coronary artery disease) [place] Hypertension Grandfather CAD (coronary artery disease) [place] Family/Other CAD (coronary artery disease) [place] - uncle and aunt Alcoholism Cancer aunt--esophageal Sister Hypertension Denies family history of Diabetes Clotting disorder Dementia Hyperlipidemia Chronic kidney disease (CKD) Anesthesia complication Bleeding disorder Lung disease Stroke Social History Smoking and tobacco/nicotine status: current every day tobacco/nicotine user Alcohol intake: never Substance/Drug Use: never Caregiver/support person: No Lives independently: Yes Household members: none Marital status: Single Highest education level completed: Some College, No Degree service: No Current occupational status: employed 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 Do you think of yourself as: Straight/Heterosexual Current gender identity: Female Nelida/Hindu: Catholic Special nelida needs: No Agree to transfusion: Yes Physical Exam Const: COMMON NORMALS: no acute distress, average body habitus, patient oriented x3, no limitations, healthy appearing, alert and well nourished HENMT: COMMON NORMALS: normocephalic, atraumatic, hearing grossly normal bilaterally, external ears normal, Normal external nose present and moist oral mucous membranes HEAD & SCALP: normocephalic and atraumatic NOSE: Normal external nose present EXTERNAL EAR: Yes external ears normal Neck/C-Spine: COMMON NORMALS: full ROM, no lymphadenopathy, supple, no meningeal signs, no JVD and Thyroid normal THYROID: Thyroid normal Chest: COMMONS NORMALS: normal inspection of the chest and normal palpation of entire chest wall Resp: COMMON NORMALS: normal respiratory effort, No retractions and No use of accessory muscles; negative for clear to auscultation bilaterally (Diffuse wheezing) AUSCULTATION: not clear to auscultation bilaterally (Diffuse wheezing) Cardio: COMMON NORMALS: no JVD, regular rate, regular rhythm, S1 normal heart sound present, S2 normal heart sound present, No gallops present (Cardio), No clicks present (Cardio), No murmurs present (Cardio) and No rub (Cardio) RATE: regular rate RHYTHM: regular rhythm HEART SOUNDS: S1 normal heart sound present and S2 normal heart sound present GI: COMMON NORMALS: Normal to inspection, nondistended, normoactive bowel sounds present, Soft to palpation, non-tender, No hepatosplenomegaly present and no masses PALPATION: Yes Soft to palpation and Yes No hepatosplenomegaly present Neuro: COMMON NORMALS: patient oriented x3 SENSORIUM/ORIENTATION: Yes alert MENINGEAL SIGNS: Yes no meningeal signs Course Vital Signs: Vital signs: Vital Signs Temperature 97.6 F 08/23/24 00:34 Pulse Rate 78 08/23/24 02:43 Respiratory Rate 17 08/23/24 02:43 Blood Pressure 171/93 08/23/24 02:43 Pulse Oximetry 94 08/23/24 02:43 Oxygen Delivery Me thod Room Air 08/23/24 02:43 MDM - SOB/Dyspnea Medical Decision Making Who presents to the ER with worsening shortness of breath. Patient failed outpatient treatment with doxycycline small short course of prednisone. Patient has asthma and COPD. Lab work was unremarkable as well as COVID RSV and influenza negative and chest x-ray negative, patient is given 25 mg Solu-Medrol 1 DuoNeb and is breathing much better. Patient be discharged on a longer course of steroids. Differential Diagnosis Likely acute exacerbation of chronic obstructive airways disease Medical Records I reviewed the patient's medical records. Lab Data I reviewed the patient's lab results. 08/23/24 00:58 08/23/24 00:58 Labs/Radiology: Radiology Impressions Chest X-Ray 08/23/24 01:07 IMPRESSION: No acute chest findings. Laboratory Results WBC 6.12 10^3/uL (3.29-11.43) 08/23/24 00:58 RBC 4.76 10^6/uL (3.85-5.65) 08/23/24 00:58 Hgb 14.00 g/dL (11.27-16.99) 08/23/24 00:58 Hct 43.9 % (36-47) 08/23/24 00:58 MCV 92.2 fl (85-98) 08/23/24 00:58 MCH 29.4 pg (27-33) 08/23/24 00:58 MCHC 31.9 g/dL (30-55) 08/23/24 00:58 RDW 14.2 % (12.1-15.1) 08/23/24 00:58 Plt Count 252 10^3/cmm (157-399) 08/23/24 00:58 MPV 10.0 fL (7.4-10.4) 08/23/24 00:58 Neut % (Auto) 61.2 % 08/23/24 00:58 Lymph % (Auto) 24.7 % 08/23/24 00:58 [place] % (Auto) 7.7 % 08/23/24 00:58 Eos % (Auto) 5.7 % 08/23/24 00:58 Baso % (Auto) 0.5 % 08/23/24 00:58 Neut # (Auto) 3.75 10^3/uL (1.8-7.7) 08/23/24 00:58 Lymph # (Auto) 1.5 10^3/uL (0.8-4.8) 08/23/24 00:58 [place] # (Auto) 0.5 10^3/uL (0.2-0.9) 08/23/24 00:58 Eos # (Auto) 0.4 10^3/uL (0.0-0.8) 08/23/24 00:58 Baso # (Auto) 0.0 10^3/uL (0.0-0.1) 08/23/24 00:58 Nucleated RBC % (auto) 0 % 08/23/24 00:58 Nucleated RBCs # 0.0 /100WBC 08/23/24 00:58 Sodium 146 mmol/L (136-145) H 08/23/24 00:58 Potassium 3.4 mmol/L (3.5-5.1) L 08/23/24 00:58 Chloride 109 mmol/L (98-107) H 08/23/24 00:58 Carbon Dioxide 28 mmol/L (22-29) 08/23/24 00:58 Anion Gap 12.4 (5-19) 08/23/24 00:58 BUN 12 mg/dL (8-23) 08/23/24 00:58 Creatinine 0.7 mg/dL (0.5-0.9) 08/23/24 00:58 GFR Calculation 83.2 mL/min (90-130) L 08/23/24 00:58 Glucose 107 mg/dL (65-115) 08/23/24 00:58 Calculated Osmolality 302 mOsm/kg (285-295) H 08/23/24 00:58 Calcium 8.8 mg/dL (8.5-10.5) 08/23/24 00:58 Total Bilirubin 0.2 mg/dL (0.15-1.2) 08/23/24 00:58 AST 16 U/L (0-32) 08/23/24 00:58 ALT 15 U/L (0-33) 08/23/24 00:58 Alkaline Phosphatase 104 U/L (35-105) 08/23/24 00:58 Total Protein 6.6 g/dL (6.6-8.7) 08/23/24 00:58 Albumin 4.3 g/dL (3.5-5.2) 08/23/24 00:58 Globulin 2.3 g/dL (1.3-4.6) 08/23/24 00:58 Coronavirus (PCR) Negative (Negative) 08/23/24 01:11 Influenza A (PCR) Negative (Negative) 08/23/24 01:11 Influenza Type B (PCR) Negative (Negative) 08/23/24 01:11 RSV (PCR) Negative (Negative) 08/23/24 01:11 All radiology interpretation(s) finalized by discharge Discharge Plan Discharge Patient Disposition: Home Clinical Impression: COPD (chronic obstructive pulmonary disease) Qualifiers: COPD type: COPD with acute exacerbation Qualified Code(s): J44.1 - Chronic obstructive pulmonary disease with (acute) exacerbation Condition: Stable Prescriptions: New prednisone 50 mg tablet See Rx Instructions .ROUTE .COMPLEX Qty: 10 0RF Rx Instructions: 50 mg orally ;1 pill daily p.o. for 7 days then 1/2 pill daily for 6 days. No Action doxycycline hyclate 100 mg tablet 100 mg PO BID 7 Days Qty: 14 0RF prednisone 20 mg tablet 40 mg PO DAILY 5 Days Qty: 10 0RF albuterol sulfate [ProAir HFA] 90 mcg/actuation HFA aerosol inhaler 1 puff inhalation Q4H PRN (Reason: shortness of breath or wheezing) Qty: 17 1RF amlodipine 10 mg tablet 10 mg PO DAILY Qty: 90 1RF atorvastatin 40 mg tablet 40 mg PO .at bedtime Qty: 90 1RF buspirone 5 mg tablet 5 mg PO BID Qty: 180 1RF Rx Instructions: anxiety carvedilol 25 mg tablet 25 mg PO BID Qty: 180 1RF escitalopram oxalate 10 mg tablet 10 mg PO DAILY Qty: 90 1RF Rx Instructions: anxiety famotidine 20 mg tablet 20 mg PO BID Qty: 180 1RF fluticasone propion-salmeterol [Advair Diskus] 250-50 mcg/dose blister with device 1 inh inhalation BID Qty: 180 1RF fluticasone propionate 50 mcg/actuation spray,suspension 2 spray intranasal DAILY Qty: 16 1RF gabapentin 300 mg capsule 300 mg PO .at bedtime PRN (Reason: pain) Qty: 90 1RF hydralazine 25 mg tablet 25 mg PO Q12H Qty: 180 1RF spironolactone 25 mg tablet 25 mg PO DAILY Qty: 90 1RF Spiriva Respimat 2.5 mcg/actuation mist 2 puff inhalation DAILY 90 Days Qty: 12 1RF valsartan 320 mg tablet 320 mg PO DAILY Qty: 90 1RF tramadol 50 mg tablet 100 mg PO .in AM Qty: 60 5RF (DME) Left Knee (medial) English Division Chair Brace See Rx Instructions .Route .MEDSUPPLY Qty: 1 0RF Rx Instructions: As directed clonidine HCl 0.1 mg tablet 0.1 mg PO Q12H PRN (Reason: hypertensive values) Qty: 60 0RF Rx Instructions: prn for BP> 160/90 Abrysvo (PF) 120 mcg/0.5 mL recon soln 0.5 ml IM ONCE Qty: 1 0RF Discharge Orders: Discharge ED (Routine); Ordered 08/23/24 Ordered By: Jairo Botello Referrals: Michael Hui MD [Primary Care Provider] - 1 week Patient Instructions: COPD (Chronic Obstructive Pulmonary Disease) (ED) Activity Restrictions/Additional Instructions: Thank you for choosing [facility] for your healthcare needs today. Please realize that you were seen in the emergency department and that we are providing you with an emergency medical screening exam and this may not be a complete and all exclusive of all testing and/or medical workup we may need to determine your element or severity of your illness. It is very important that you follow-up as instructed with your primary care provider or specialist for the additional evaluation and to discuss your medical treatment plan. You may return to the emergency department should you have concerns or if your condition changes or worsens in any way. Coding Level of Care Code ED Executive Director Of Nursing for Johnny Mcgowan
[2024-08-23] MEDS: methylPREDNISolone sod succ 125 mg/2 mL INJ IVP (01:19)
[2024-08-23] MEDS: ipratropium-albuterol 3 mL Neb INHALATION (01:23)
[2024-08-23 01:31] LABS: Alanine Aminotransferase 15 U/L (0-33); Albumin Level 4.3 g/dL (3.5-5.2); Alkaline Phosphatase 104 U/L (35-105); Aspartate Amino Transferase 16 U/L (0-32); Blood Urea Nitrogen 12 mg/dL (8-23); Calcium 8.8 mg/dL (8.5-10.5); Carbon Dioxide 28 mmol/L (22-29); Chloride 109 mmol/L (98-107); Creatinine Clr Calc Pharmacy 60.7385; Globulin 2.3 g/dL (1.3-4.6); Glomerular Filtration Rate 83.2 mL/min (90-130); Glucose 107 mg/dL (65-115); Osmolality Calculated 302 mOsm/kg (285-295); Sodium 146 mmol/L (136-145); Total Bilirubin 0.2 mg/dL (0.15-1.2); Total Protein 6.6 g/dL (6.6-8.7)
[2024-08-23 01:32] LABS: Anion Gap 12.4 (5-19); Potassium 3.4 mmol/L (3.5-5.1)
[2024-08-23] MEDS: acetaminophen 500 mg Tablet PO (02:15)
[2024-08-23] MEDS: TRAMadol 50 mg Tablet PO (02:15)
[2024-08-23 03:31] LABS: Covid PCR NEGATIVE (Negative); Influenza A NEGATIVE (Negative); Influenza B NEGATIVE (Negative); Respiratory Syncytial Virus Ce NEGATIVE (Negative)
== END 2024-08-23 03:50 | disposition home or self-care (01) ==
PROVIDERS: Emergency Provider Emergency Medicine; PCP Family Medicine Adult Medicine
DX: J44.1 Chronic obstructive pulmonary disease with (acute) exacerbation (principal)
CPT/HCPCS: 0241U; 71045; 80053; 85025; 93005; 94640; 96374; 99285; J2919

== ENCOUNTER → 2024-09-16 13:50 | Outpatient (BNVA) | payer MEDICARE, OTHER, SELFPAY | PROVIDERS: PCP Family Medicine Adult Medicine; Visit Provider Nurse Practitioner | DX: I10 Essential (primary) hypertension; R73.9 Hyperglycemia, unspecified | CPT/HCPCS: 80053; 80061; 83036 ==

== ENCOUNTER 2024-11-04 20:00 | Emergency (ER) | payer MEDICARE, OTHER, SELFPAY ==
[2024-11-04] VITALS (10 sets, daily range): BP systolic 101–147; BP diastolic 37–57; PULSE 57–85; RESP 17–18; TEMP 36.6; O2SAT 90–94; BMI 29.5
--- NOTE | 2024-11-04 20:18 | ECG_ITS ---
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 Measurements Intervals [place] Rate: 61 P: 68 [place]: 176 QRS: 68 QRSD: 106 T: 60 QT: 440 QTc: 444 Interpretive Statements SINUS RHYTHM Compared to ECG 08/23/2024 00:36:59 ST (T wave) deviation no longer present Electronically Signed On 11-04-2024 21:11:35 POSTDOCTORAL FELLOW by Freddie Beatty M.D. [id number]
--- NOTE | 2024-11-04 20:48 | W.ED.DIZZY ---
Documented by User: Keyshawnoswald Razo DO 11/04/24 22:54 HPI - Dizziness General: Chief Complaint: Dizziness Stated Complaint: NEAR SYNCOPE Time Seen by Provider: 11/04/24 20:12 History of Present Illness: HPI Narrative: 68-year-old female brought in because she felt little bit dizzy work. She reports that she has little bit of a headache along with just feeling dizzy. She also developed some diarrhea. No nausea or vomiting. Patient has some generalized malaise. Associated symptoms: Denies chest pain, chills, palpitations or vomiting Related Data Previous Rx's Medication Instructions Recorded clonidine HCl 0.1 mg tablet 0.1 mg PO Q12H PRN hypertensive 09/12/23 values #60 tabs hydralazine 25 mg tablet 25 mg PO Q12H hypertension #180 04/01/24 tabs Abrysvo (PF) 120 mcg/0.5 mL 0.5 ml IM ONCE #1 ea 09/16/24 intramuscular solution (RSV vac, preF A and preF B(PF)) albuterol sulfate 90 mcg/actuation 1 puff inhalation Q4H PRN 09/16/24 aerosol inhaler shortness of breath or wheezing #17 grams amlodipine 10 mg-atorvastatin 40 1 tab PO DAILY #90 tabs 09/16/24 mg tablet budesonide 160 mcg-glycopyr 9 2 inh inhalation BID #32.1 grams 09/16/24 mcg-formot 4.8 mcg/actuation HFA inhaler (Breztri Aerosphere) carvedilol 25 mg tablet 25 mg PO BID heart #180 tabs 09/16/24 famotidine 20 mg tablet 20 mg PO BID acid reflux #180 tabs 09/16/24 fluticasone propionate 50 2 spray intranasal DAILY allergies 09/16/24 mcg/actuation nasal #16 grams spray,suspension gabapentin 300 mg capsule 300 mg PO .at bedtime PRN pain #90 09/16/24 caps tramadol 50 mg tablet 100 mg (2 x 50 mg) PO .in AM pain 09/16/24 #60 tabs valsartan 320 1 tab PO DAILY #90 tabs 09/16/24 mg-hydrochlorothiazide 25 mg tablet (Diovan HCT) venlafaxine 75 mg capsule,extended 75 mg PO QAM #90 caps 09/16/24 release 24 hr (Effexor XR) ondansetron 4 mg disintegrating 4 mg PO Q8H PRN nausea and 11/04/24 tablet vomiting #10 tabs Allergies Allergy/AdvReac Type Severity Reaction Status Date / Time Penicillins Allergy ALGY-Anaphy Verified 11/04/24 20:18 laxis Review of Systems Const: Denies: fever(s) or chills Card: Denies: chest pain or palpitations Resp: Denies: dyspnea, non-productive cough or wheezing GI: Reports: diarrhea; Denies: abdominal pain or vomiting : Denies: flank pain Skin/Breast: Denies: rash Neuro: Reports: dizziness; Denies: weakness in extremities or Slurred speech present PFSH ED PFSH: Medical History Smoker Left knee pain Localized osteoarthritis of left knee Allergic rhinitis due to allergen GERD (gastroesophageal reflux disease) Hyperlipidemia Opacity of lung on imaging study COPD (chronic obstructive pulmonary disease) Anxiety Early onset macular degeneration SVT (supraventricular tachycardia) Asthma Hypertension Traumatic partial tear of left biceps tendon Surgical History History of tonsillectomy and adenoidectomy Hx of hysterectomy History of cardiac radiofrequency ablation Family History Father Alcoholism Cancer esophageal Mother CAD (coronary artery disease) PR Hypertension Grandfather CAD (coronary artery disease) PR Family/Other CAD (coronary artery disease) PR - uncle and aunt Alcoholism Cancer aunt--esophageal Sister Hypertension Denies family history of Diabetes Clotting disorder Dementia Hyperlipidemia Chronic kidney disease (CKD) Anesthesia complication Bleeding disorder Lung disease Stroke Social History Smoking and tobacco/nicotine status: current every day tobacco/nicotine user Alcohol intake: never Substance/Drug Use: never Caregiver/support person: No Lives independently: Yes Household members: none Marital status: Single Highest education level completed: Some College, No Degree service: No Current occupational status: employed Current occupation: [employer]--H[employer] Do you think of yourself as: Straight/Heterosexual Current gender identity: Female Nelida/Samaritan: Moravian Special nelida needs: No Agree to transfusion: Yes Physical Exam Const: COMMON NORMALS: no acute distress, patient oriented x3 and alert Eye: COMMON NORMALS: Equal, round and reactive pupils present, EOMs intact bilaterally, conjunctivae normal and normal visual warner by confrontation CONJUNCTIVA: Yes conjunctivae normal PUPIL: Yes Equal, round and reactive pupils present Resp: COMMON NORMALS: normal respiratory effort, No retractions and No use of accessory muscles Cardio: COMMON NORMALS: regular rate and regular rhythm RATE: regular rate RHYTHM: regular rhythm GI: COMMON NORMALS: Soft to palpation and non-tender PALPATION: Yes Soft to palpation Extremity: COMMON NORMALS: normal to inspection, full ROM and capillary refill normal Neuro: COMMON NORMALS: patient oriented x3, CN's II-XII intact bilaterally, moves all extremities, no focal motor deficits, no sensory deficits noted, deep tendon reflexes 2+ bilaterally and gait normal SENSORIUM/ORIENTATION: Yes alert Skin: COMMON NORMALS: no rashes or lesions noted GENERAL SKIN EXAM: no rashes or lesions noted Course Vital Signs: Vital signs: Vital Signs Temperature 97.9 F 11/04/24 20:11 Pulse Rate 78 11/04/24 23:30 Respiratory Rate 17 11/04/24 22:00 Blood Pressure 101/46 11/04/24 23:30 Pulse Oximetry 91 11/04/24 23:30 Oxygen Delivery Me thod Room Air 11/04/24 23:30 MDM - Dizziness Medical Decision Making Patient diagnostic studies were ordered and reviewed. Patient with mild increased BUN but otherwise no significant findings. Patient signed out to Dr. Collier at the end of my shift with CT head pending and repeat troponin. Patient was feeling better as far as her headache following some Toradol. I suspect patient likely has just a viral syndrome based on her symptoms. Final disposition per Dr. Collier Lab Data 11/04/24 20:52 11/04/24 20:[address] 11/04/24 21:14 IMPRESSION: No acute intracranial abnormality. Laboratory Results WBC 9.60 10^3/uL (3.29-11.43) 11/04/24 20:52 RBC 4.29 10^6/uL (3.85-5.65) 11/04/24 20:52 Hgb 13.10 g/dL (11.27-16.99) 11/04/24 20:52 Hct 40.3 % (36-47) 11/04/24 20:52 MCV 93.9 fl (85-98) 11/04/24 20:52 MCH 30.5 pg (27-33) 11/04/24 20:52 MCHC 32.5 g/dL (30-55) 11/04/24 20:52 RDW 13.7 % (12.1-15.1) 11/04/24 20:52 Plt Count 242 10^3/cmm (157-399) 11/04/24 20:52 MPV 9.6 fL (7.4-10.4) 11/04/24 20:52 Neut % (Auto) 58.4 % 11/04/24 20:52 Lymph % (Auto) 29.3 % 11/04/24 20:52 [place] % (Auto) 7.7 % 11/04/24 20:52 Eos % (Auto) 3.8 % 11/04/24 20:52 Baso % (Auto) 0.4 % 11/04/24 20:52 Neut # (Auto) 5.61 10^3/uL (1.8-7.7) 11/04/24 20:52 Lymph # (Auto) 2.8 10^3/uL (0.8-4.8) 11/04/24 20:52 [place] # (Auto) 0.7 10^3/uL (0.2-0.9) 11/04/24 20:52 Eos # (Auto) 0.4 10^3/uL (0.0-0.8) 11/04/24 20:52 Baso # (Auto) 0.0 10^3/uL (0.0-0.1) 11/04/24 20:52 Nucleated RBC % (auto) 0 % 11/04/24:52 Nucleated RBCs # 0.0 /100WBC 11/04/24 20:52 Sodium 140 mmol/L (136-145) 11/04/24 20:52 Potassium 3.9 mmol/L (3.5-5.1) 11/04/24 20:52 Chloride 101 mmol/L (98-107) 11/04/24 20:52 Carbon Dioxide 28 mmol/L (22-29) 11/04/24 20:52 Anion Gap 14.9 (5-19) 11/04/24 20:52 BUN 32 mg/dL (8-23) H 11/04/24 20:52 Creatinine 0.9 mg/dL (0.5-0.9) 11/04/24 20:52 GFR Calculation 62.3 mL/min (90-130) L 11/04/24 20:52 Glucose 158 mg/dL (65-115) H 11/04/24 20:52 Calculated Osmolality 300 mOsm/kg (285-295) H 11/04/24 20:52 Calcium 9.4 mg/dL (8.5-10.5) 11/04/24 20:52 Magnesium 2.2 mg/dL (1.7-2.3) 11/04/24 20:52 Total Bilirubin 0.2 mg/dL (0.15-1.2) 11/04/24 20:52 AST 15 U/L (0-32) 11/04/24 20:52 ALT 14 U/L (0-33) 11/04/24 20:52 Alkaline Phosphatase 102 U/L (35-105) 11/04/24 20:52 Troponin T Baseline < 6 ng/L (0-10) 11/04/24 20:52 Troponin T 120 Minute 6.16 ng/L (0-10) 11/04/24 22:50 Delta Troponin T 0.07744 ABS# (0-10) 11/04/24 22:50 Total Protein 5.9 g/dL (6.6-8.7) L 11/04/24 20:52 Albumin 4.2 g/dL (3.5-5.2) 11/04/24 20:52 Globulin 1.7 g/dL (1.3-4.6) 11/04/24 20:52 Urine Color Dark yellow (Yellow) A 11/04/24 21:10 Urine Appearance Clear (CLEAR) 11/04/24 21:10 Urine pH 5.0 (5-7) 11/04/24 21:10 Ur Specific [place] 1.020 (1.005-1.030) 11/04/24 21:10 Urine Protein Negative (Negative) 11/04/24 21:10 Urine Glucose (UA) Trace (Normal) H 11/04/24 21:10 Urine Ketones Negative (Negative) 11/04/24 21:10 Urine Blood Negative (Negative) 11/04/24 21:10 Urine Nitrate Negative (Negative) 11/04/24 21:10 Urine Bilirubin Negative (Negative) 11/04/24 21:10 Urine Urobilinogen 0.2 mg/dL (Negative) 11/04/24 21:10 Ur Leukocyte Esterase Negative (Negative) 11/04/24 21:10 Urine RBC 0-2 /hpf (0-2) 11/04/24 21:10 Urine WBC 0-5 /hpf (0-5) 11/04/24 21:10 Ur Squamous Epith Cells 0-5 /hpf (0-5) 11/04/24 21:10 Amorphous Sediment Not Reportable 11/04/24 21:10 Urine Bacteria None seen /hpf (NONE) 11/04/24 21:10 Hyaline Casts 10.32 /lpf 11/04/24 21:10 Influenza Type A Ag Negative (Negative) 11/04/24 20:55 Influenza Type B Ag Negative (Negative) 11/04/24 20:55 SARS-CoV-2 Ag (Rapid) negative (Negative) 11/04/24 21:19 Discharge Plan Discharge Patient Disposition: Home Clinical Impression: Viral gastroenteritis Condition: Stable Prescriptions: New ondansetron 4 mg tablet,disintegrating 4 mg PO Q8H PRN (Reason: nausea and vomiting) Qty: 10 0RF No Action hydralazine 25 mg tablet 25 mg PO Q12H Qty: 180 1RF Hold Instructions: Monitor blood pressure Kayodeannette Aerosphere 160-9-4.8 mcg/actuation HFA aerosol inhaler 2 inh inhalation BID Qty: 32.1 1RF amlodipine-atorvastatin 10-40 mg tablet 1 tab PO DAILY Qty: 90 1RF venlafaxine [Effexor XR] 75 mg capsule,extended release 24hr 75 mg PO QAM Qty: 90 1RF valsartan-hydrochlorothiazide [Diovan HCT] 320-25 mg tablet 1 tab PO DAILY Qty: 90 1RF carvedilol 25 mg tablet 25 mg PO BID Qty: 180 1RF Abrysvo (PF) 120 mcg/0.5 mL recon soln 0.5 ml IM ONCE Qty: 1 0RF famotidine 20 mg tablet 20 mg PO BID Qty: 180 1RF albuterol sulfate 90 mcg/actuation HFA aerosol inhaler 1 puff inhalation Q4H PRN (Reason: shortness of breath or wheezing) Qty: 17 1RF fluticasone propionate 50 mcg/actuation spray,suspension 2 spray intranasal DAILY Qty: 16 1RF gabapentin 300 mg capsule 300 mg PO .at bedtime PRN (Reason: pain) Qty: 90 1RF tramadol 50 mg tablet 100 mg PO .in AM Qty: 60 5RF clonidine HCl 0.1 mg tablet 0.1 mg PO Q12H PRN (Reason: hypertensive values) Qty: 60 0RF Rx Instructions: prn for BP> 160/90 Discharge Orders: Discharge ED (Routine); Ordered 11/04/24 Ordered By: Selene Collier Referrals: Sushila Begum, AUTOMATIC MAINTAINER-C [Primary Care Provider] - Discharge Diet: Advance as tolerated Discharge Activity: Increase activity as tolerated Patient Instructions: Gastroenteritis (ED), Opioid Safety, Pain Management Activity Restrictions/Additional Instructions: Thank you for choosing [facility] for your healthcare needs today. Please realize this is an emergency room and that we are providing you with a medical screening exam and this may not be complete and all inclusive of all the testing and or work up that you may need to determine your ailment or severity of your illness. You have been screened and evaluated and felt safe for discharge. Health conditions do change or evolve sometimes and as such it is important that you follow up with your Primary Doctor to be re checked, 3-5 days is a general good time frame for follow up. You are always welcome to return to the ED for re assessment if your symptoms are worsening or you have new concerns Coding Level of Care Code ED Sfdc Consultant for Chg Fwd Documented by User: Selene Collier MD 11/04/24 23:56 HPI - Dizziness General: Chief Complaint: Dizziness Stated Complaint: NEAR SYNCOPE Time Seen by Provider: 11/04/24 20:12 Related Data Previous Rx's Medication Instructions Recorded clonidine HCl 0.1 mg tablet 0.1 mg PO Q12H PRN hypertensive 09/12/23 values #60 tabs hydralazine 25 mg tablet 25 mg PO Q12H hypertension #180 04/01/24 tabs Abrysvo (PF) 120 mcg/0.5 mL 0.5 ml IM ONCE #1 ea 09/16/24 intramuscular solution (RSV vac, preF A and preF B(PF)) albuterol sulfate 90 mcg/actuation 1 puff inhalation Q4H PRN 09/16/24 aerosol inhaler shortness of breath or wheezing #17 grams amlodipine 10 mg-atorvastatin 40 1 tab PO DAILY #90 tabs 09/16/24 mg tablet budesonide 160 mcg-glycopyr 9 2 inh inhalation BID #32.1 grams 09/16/24 mcg-formot 4.8 mcg/actuation HFA inhaler (Breztri Aerosphere) carvedilol 25 mg tablet 25 mg PO BID heart #180 tabs 09/16/24 famotidine 20 mg tablet 20 mg PO BID acid reflux #180 tabs 09/16/24 fluticasone propionate 50 2 spray intranasal DAILY allergies 09/16/24 mcg/actuation nasal #16 grams spray,suspension gabapentin 300 mg capsule 300 mg PO .at bedtime PRN pain #90 09/16/24 caps tramadol 50 mg tablet 100 mg (2 x 50 mg) PO .in AM pain 09/16/24 #60 tabs valsartan 320 1 tab PO DAILY #90 tabs 09/16/24 mg-hydrochlorothiazide 25 mg tablet (Diovan HCT) venlafaxine 75 mg capsule,extended 75 mg PO QAM #90 caps 09/16/24 release 24 hr (Effexor XR) ondansetron 4 mg disintegrating 4 mg PO Q8H PRN nausea and 11/04/24 tablet vomiting #10 tabs Allergies Allergy/AdvReac Type Severity Reaction Status Date / Time Penicillins Allergy ALGY-Anaphy Verified 11/04/24 20:18 laxis PFSH ED PFSH: Medical History Smoker Left knee pain Localized osteoarthritis of left knee Allergic rhinitis due to allergen GERD (gastroesophageal reflux disease) Hyperlipidemia Opacity of lung on imaging study COPD (chronic obstructive pulmonary disease) Anxiety Early onset macular degeneration SVT (supraventricular tachycardia) Asthma Hypertension Traumatic partial tear of left biceps tendon Surgical History History of tonsillectomy and adenoidectomy Hx of hysterectomy History of cardiac radiofrequency ablation Family History Father Alcoholism Cancer esophageal Mother CAD (coronary artery disease) PR Hypertension Grandfather CAD (coronary artery disease) PR Family/Other CAD (coronary artery disease) PR - uncle and aunt Alcoholism Cancer aunt--esophageal Sister Hypertension Denies family history of Diabetes Clotting disorder Dementia Hyperlipidemia Chronic kidney disease (CKD) Anesthesia complication Bleeding disorder Lung disease Stroke Social History Smoking and tobacco/nicotine status: current every day tobacco/nicotine user Alcohol intake: never Substance/Drug Use: never Caregiver/support person: No Lives independently: Yes Household members: none Marital status: Single Highest education level completed: Some College, No Degree service: No Current occupational status: employed 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 Patient with mild increased BUN but otherwise no significant findings. Patient signed out to Dr. Collier at the end of my shift with CT head pending and repeat troponin. Patient was feeling better as far as her headache following some Toradol. I suspect patient likely has just a viral syndrome based on her symptoms. Final disposition per Dr. Collier Assessment and plan: Viral gastroenteritis Dizziness - Discharged home - Discussed plan with patient. Answered any questions. - Evaluation and treatment of this problem were appropriate in the emergency setting. Lab Data 11/04/24 20:52 11/04/24 20:[address] 11/04/24 21:14 IMPRESSION: No acute intracranial abnormality. Laboratory Results WBC 9.60 10^3/uL (3.29-11.43) 11/04/24 20:52 RBC 4.29 10^6/uL (3.85-5.65) 11/04/24 20:52 Hgb 13.10 g/dL (11.27-16.99) 11/04/24 20:52 Hct 40.3 % (36-47) 11/04/24 20:52 MCV 93.9 fl (85-98) 11/04/24 20:52 MCH 30.5 pg (27-33) 11/04/24 20:52 MCHC 32.5 g/dL (30-55) 11/04/24 20:52 RDW 13.7 % (12.1-15.1) 11/04/24 20: Plt Count 242 10^3/cmm (157-399) 11/04/24 20: MPV 9.6 fL (7.4-10.4) 11/04/24 20:52 Neut % (Auto) 58.4 % 11/04/24 20:52 Lymph % (Auto) 29.3 % 11/04/24 20:52 [place] % (Auto) 7.7 % 11/04/24 20:52 Eos % (Auto) 3.8 % 11/04/24 20:52 Baso % (Auto) 0.4 % 11/04/24:52 Neut # (Auto) 5.61 10^3/uL (1.8-7.7) 11/04/24 20:52 Lymph # (Auto) 2.8 10^3/uL (0.8-4.8) 11/04/24 20:52 [place] # (Auto) 0.7 10^3/uL (0.2-0.9) 11/04/24 20:52 Eos # (Auto) 0.4 10^3/uL (0.0-0.8) 11/04/24 20:52 Baso # (Auto) 0.0 10^3/uL (0.0-0.1) 11/04/24 20:52 Nucleated RBC % (auto) 0 % 11/04/24: Nucleated RBCs # 0.0 /100WBC 11/04/24 20: Sodium 140 mmol/L (136-145) 11/04/24 20:52 Potassium 3.9 mmol/L (3.5-5.1) 11/04/24 20:52 Chloride 101 mmol/L (98-107) 11/04/24 20:52 Carbon Dioxide 28 mmol/L (22-29) 11/04/24 20:52 Anion Gap 14.9 (5-19) 11/04/24 20:52 BUN 32 mg/dL (8-23) H 11/04/24 20:52 Creatinine 0.9 mg/dL (0.5-0.9) 11/04/24 20:52 GFR Calculation 62.3 mL/min (90-130) L 11/04/24 20:52 Glucose 158 mg/dL (65-115) H 11/04/24 20:52 Calculated Osmolality 300 mOsm/kg (285-295) H 11/04/24 20:52 Calcium 9.4 mg/dL (8.5-10.5) 11/04/24 20:52 Magnesium 2.2 mg/dL (1.7-2.3) 11/04/24 20:52 Total Bilirubin 0.2 mg/dL (0.15-1.2) 11/04/24 20:52 AST 15 U/L (0-32) 11/04/24 20:52 ALT 14 U/L (0-33) 11/04/24 20:52 Alkaline Phosphatase 102 U/L (35-105) 11/04/24 20:52 Troponin T Baseline < 6 ng/L (0-10) 11/04/24 20:52 Troponin T 120 Minute 6.16 ng/L (0-10) 11/04/24 22:50 Delta Troponin T 0.00363 ABS# (0-10) 11/04/24 22:50 Total Protein 5.9 g/dL (6.6-8.7) L 11/04/24 20:52 Albumin 4.2 g/dL (3.5-5.2) 11/04/24 20:52 Globulin 1.7 g/dL (1.3-4.6) 11/04/24 20:52 Urine Color Dark yellow (Yellow) A 11/04/24 21:10 Urine Appearance Clear (CLEAR) 11/04/24 21:10 Urine pH 5.0 (5-7) 11/04/24 21:10 Ur Specific [place] 1.020 (1.005-1.030) 11/04/24 21:10 Urine Protein Negative (Negative) 11/04/24 21:10 Urine Glucose (UA) Trace (Normal) H 11/04/24 21:10 Urine Ketones Negative (Negative) 11/04/24 21:10 Urine Blood Negative (Negative) 11/04/24 21:10 Urine Nitrate Negative (Negative) 11/04/24 21:10 Urine Bilirubin Negative (Negative) 11/04/24 21:10 Urine Urobilinogen 0.2 mg/dL (Negative) 11/04/24 21:10 Ur Leukocyte Esterase Negative (Negative) 11/04/24 21:10 Urine RBC 0-2 /hpf (0-2) 11/04/24 21:10 Urine WBC 0-5 /hpf (0-5) 11/04/24 21:10 Ur Squamous Epith Cells 0-5 /hpf (0-5) 11/04/24 21:10 Amorphous Sediment Not Reportable 11/04/24 21:10 Urine Bacteria None seen /hpf (NONE) 11/04/24 21:10 Hyaline Casts 10.32 /lpf 11/04/24 21:10 Influenza Type A Ag Negative (Negative) 11/04/24 20:55 Influenza Type B Ag Negative (Negative) 11/04/24 20:55 SARS-CoV-2 Ag (Rapid) negative (Negative) 11/04/24 21:19 All radiology interpretation(s) finalized by discharge Discharge Plan Discharge Patient Disposition: Home Clinical Impression: Viral gastroenteritis Condition: Stable Prescriptions: New ondansetron 4 mg tablet,disintegrating 4 mg PO Q8H PRN (Reason: nausea and vomiting) Qty: 10 0RF No Action hydralazine 25 mg tablet 25 mg PO Q12H Qty: 180 1RF Hold Instructions: Monitor blood pressure Breztri Aerosphere 160-9-4.8 mcg/actuation HFA aerosol inhaler 2 inh inhalation BID Qty: 32.1 1RF amlodipine-atorvastatin 10-40 mg tablet 1 tab PO DAILY Qty: 90 1RF venlafaxine [Effexor XR] 75 mg capsule,extended release 24hr 75 mg PO QAM Qty: 90 1RF valsartan-hydrochlorothiazide [Diovan HCT] 320-25 mg tablet 1 tab PO DAILY Qty: 90 1RF carvedilol 25 mg tablet 25 mg PO BID Qty: 180 1RF Abrysvo (PF) 120 mcg/0.5 mL recon soln 0.5 ml IM ONCE Qty: 1 0RF famotidine 20 mg tablet 20 mg PO BID Qty: 180 1RF albuterol sulfate 90 mcg/actuation HFA aerosol inhaler 1 puff inhalation Q4H PRN (Reason: shortness of breath or wheezing) Qty: 17 1RF fluticasone propionate 50 mcg/actuation spray,suspension 2 spray intranasal DAILY Qty: 16 1RF gabapentin 300 mg capsule 300 mg PO .at bedtime PRN (Reason: pain) Qty: 90 1RF tramadol 50 mg tablet 100 mg PO .in AM Qty: 60 5RF clonidine HCl 0.1 mg tablet 0.1 mg PO Q12H PRN (Reason: hypertensive values) Qty: 60 0RF Rx Instructions: prn for BP> 160/90 Discharge Orders: Discharge ED (Routine); Ordered 11/04/24 Ordered By: Selene Collier Referrals: Sushila Begum, AUTOMATIC MAINTAINER-C [Primary Care Provider] - Discharge Diet: Advance as tolerated Discharge Activity: Increase activity as tolerated Patient Instructions: Gastroenteritis (ED), Opioid Safety, Pain Management Activity Restrictions/Additional Instructions: Thank you for choosing [facility] for your healthcare needs today. Please realize this is an emergency room and that we are providing you with a medical screening exam and this may not be complete and all inclusive of all the testing and or work up that you may need to determine your ailment or severity of your illness. You have been screened and evaluated and felt safe for discharge. Health conditions do change or evolve sometimes and as such it is important that you follow up with your Primary Doctor to be re checked, 3-5 days is a general good time frame for follow up. You are always welcome to return to the ED for re assessment if your symptoms are worsening or you have new concerns Coding Level of Care Code ED Sfdc Consultant for Johnny Mcgowan
[2024-11-04 21:10] LABS: Basophils % 0.4 %; Eosinophils # 0.4 10^3/uL (0.0-0.8); Eosinophils % 3.8 %; Hematocrit 40.3 % (36-47); Lymphocytes # 2.8 10^3/uL (0.8-4.8); Lymphocytes % 29.3 %; Mean Corpuscular HGB Conc 32.5 g/dL (30-55); Mean Corpuscular Hemoglobin 30.5 pg (27-33); Mean Corpuscular Volume 93.9 fl (85-98); Mean Platelet Volume 9.6 fL (7.4-10.4); Monocytes # 0.7 10^3/uL (0.2-0.9); Monocytes % 7.7 %; Neutrophils # 5.61 10^3/uL (1.8-7.7); Neutrophils % 58.4 %; Nucleated Red Blood Cells % 0 %; Platelet Count 242 10^3/cmm (157-399); Red Blood Count 4.29 10^6/uL (3.85-5.65); Red Cell Distribution Width 13.7 % (12.1-15.1)
--- NOTE | 2024-11-04 21:14 | CTR_ITS ---
PROCEDURE INFORMATION: Exam: CT Head Without Contrast Exam date and time: 11/04/2024 10:33 PM Age: 68 years old Clinical indication: Dizziness; Additional info: Dizziness, headache TECHNIQUE: Imaging protocol: Computed tomography of the head without contrast. Radiation optimization: All CT scans at this facility use at least one of these dose optimization techniques: automated exposure control; mA and/or kV adjustment per patient size (includes targeted exams where dose is matched to clinical indication); or iterative reconstruction. COMPARISON: No relevant prior studies available. RADIATION DOSE METRICS: Total DLP (mGy-cm): 1046.18 FINDINGS: Brain: Normal. No hemorrhage. Unremarkable white matter. No mass effect. Cerebral ventricles: No ventriculomegaly. Paranasal sinuses: Visualized sinuses are unremarkable. No fluid levels. Mastoid air cells: Visualized mastoid air cells are well aerated. Bones: Unremarkable. No acute fracture. Soft tissues: Unremarkable. CT/CT head wo con* [id number] IMPRESSION: No acute intracranial abnormality.
[2024-11-04 21:21] LABS: Bilirubin Urine Negative (Negative); Blood Urine Negative (Negative); Glucose Urine UA Trace (Normal); Ketones Urine Negative (Negative); Leukocyte Esterase Urine Negative (Negative); Nitrate Urine Negative (Negative); Protein Urine Negative (Negative); Urine Appearance Clear (CLEAR); Urine Color Dark Yellow (Yellow); Urobilinogen Urine 0.2 mg/dL (Negative)
[2024-11-04 21:26] LABS: Add Urine Microscopic? YES; Bacteria Urine None Seen /hpf; Hyaline Casts Urine 10.32 /lpf; RBC Urine 0-2 /hpf (0-2); Squamous Epithelial Cell Urine 0-5 /hpf (0-5); WBC Urine 0-5 /hpf (0-5)
[2024-11-04 21:32] LABS: Alanine Aminotransferase 14 U/L (0-33); Albumin Level 4.2 g/dL (3.5-5.2); Alkaline Phosphatase 102 U/L (35-105); Aspartate Amino Transferase 15 U/L (0-32); Blood Urea Nitrogen 32 mg/dL (8-23); Calcium 9.4 mg/dL (8.5-10.5); Carbon Dioxide 28 mmol/L (22-29); Chloride 101 mmol/L (98-107); Creatinine Clr Calc Pharmacy 53.8182; Globulin 1.7 g/dL (1.3-4.6); Glomerular Filtration Rate 62.3 mL/min (90-130); Glucose 158 mg/dL (65-115); Magnesium 2.2 mg/dL (1.7-2.3); Osmolality Calculated 300 mOsm/kg (285-295); Sodium 140 mmol/L (136-145); Total Bilirubin 0.2 mg/dL (0.15-1.2); Total Protein 5.9 g/dL (6.6-8.7)
[2024-11-04 21:33] LABS: Troponin(5th) Baseline < 6 ng/L (0-10)
[2024-11-04 21:37] LABS: SARS Covid-2 Antigen negative (Negative)
[2024-11-04 21:48] LABS: Anion Gap 14.9 (5-19); Potassium 3.9 mmol/L (3.5-5.1)
[2024-11-04 21:53] LABS: UA Slide Review UA Slide Review Perf
[2024-11-04 22:02] LABS: Influenza A by IFA Negative (Negative); Influenza B by IFA Negative (Negative)
[2024-11-04] MEDS: ketorolac 30 mg/mL INJ 15 MG IVP (22:31)
[2024-11-04 23:12] LABS: Troponin 5 2HR 6.16 ng/L (0-10); Troponin 5 2HR Delta 0.16001 ABS# (0-10)
[2024-11-05 00:30] VITALS: BP 118/39; PULSE 67; O2SAT 93
[2024-11-05 00:53] VITALS: BP 118/39; PULSE 67; O2SAT 93
== END 2024-11-05 00:55 | disposition home or self-care (01) ==
PROVIDERS: Student in an Organized Health Care Education/Training Program; Emergency Provider Emergency Medicine; PCP Nurse Practitioner
DX: K52.9 Noninfective gastroenteritis and colitis, unspecified (principal); A08.4 Viral intestinal infection, unspecified; Z11.52 Encounter for screening for COVID-19; Z72.0 Tobacco use; J44.9 Chronic obstructive pulmonary disease, unspecified; E78.5 Hyperlipidemia, unspecified; I10 Essential (primary) hypertension
CPT/HCPCS: 36415; 70450; 80053; 81001; 83735; 84484; 85025; 87426; 87804; 93005; 96374; 99285; J1885

== ENCOUNTER → 2024-12-03 09:42 | Outpatient (BNVA) | payer MEDICARE, OTHER, SELFPAY | PROVIDERS: PCP Nurse Practitioner | DX: R05.9 Cough, unspecified (principal) | CPT/HCPCS: 87400 ==

== ENCOUNTER 2024-12-05 05:26 | Inpatient (IN) | payer MEDICARE, OTHER, SELFPAY ==
[2024-12-05] VITALS (13 sets, daily range): BP systolic 126–163; BP diastolic 57–90; PULSE 62–90; RESP 14–20; TEMP 36.4–37.1; O2SAT 89–93; BMI 28.3; BMI 28.9
--- NOTE | 2024-12-05 05:31 | ECG_ITS ---
[facility] Test Date: 2024-12-05 Pat Name: Clara Rajput Department: Room: 272 Gender: Female Advertising Director: : 1955 Requested By: Philip Miller Order Number: [id number] Reading MD: LATASHA GARCIA Measurements Intervals [place] Rate: 75 P: 65 DC: 153 QRS: 69 QRSD: 100 T: 56 QT: 383 QTc: 429 Interpretive Statements SINUS RHYTHM Compared to ECG 11/04/2024 20:58:28 No significant changes Electronically Signed On 12-07-2024 21:13:24 ADOPTION AGENT by LATASHA GARCIA [email or web address]
--- NOTE | 2024-12-05 05:37 | XRR_ITS ---
PROCEDURE INFORMATION: Exam: XR Chest Exam date and time: 12/05/2024 5:39 AM Age: 68 years old Clinical indication: Cough and shortness of breath; Additional info: Dyspnea/cough TECHNIQUE: Imaging protocol: Radiologic exam of the chest. Views: 1 view. COMPARISON: CR XR chest 1V portable [id number] 08/23/2024 1:10 AM FINDINGS: Lungs: Unremarkable. No consolidation. Pleural spaces: Unremarkable. No pleural effusion. No pneumothorax. Heart/Mediastinum: Unremarkable. No cardiomegaly. Bones/joints: Unremarkable. XR/XR chest 1V portable [id number] IMPRESSION: No acute findings.
--- NOTE | 2024-12-05 05:38 | ED_ITS ---
HPI - SOB/Dyspnea 2 General: Chief Complaint: Shortness of Breath/Dyspnea Stated Complaint: Can Not Breathe Time Seen by Provider: 12/05/24 05:37 History of Present Illness: HPI Narrative: 68-year-old female presents emergency ro om complaining of shortness of breath wheezing and chest congestion. Patient was seen 2 days ago at the outpatient clinic found to have influenza A. She was started on Bactrim DS. This as prophylaxis was also started on a steroid taper. Patient has been using nebulizers regularly. She is not chronically on oxygen per her report but she does use oxygen occasionally and has been since this began. The last time she used a nebulizer was 10:00 last night. She denies any hemoptysis. Associated symptoms: Reports chest congestion; Deny abdominal pain, chest pain or fever(s) Related Data Previous Rx's ?Medication ?Instructions ?Recorded clonidine HCl 0.1 mg tablet 0.1 mg PO Q12H PRN hyperte nsive 09/12/23 values #60 tabs hydralazine 25 mg tablet 25 mg PO Q12H hypertension # 180 04/01/24 Held on 09/16/24. tabs Instructions: Monitor blood pressure Abrysvo (PF) 120 mcg/0.5 mL 0.5 ml IM ONCE #1 ea 09/16 intramuscular solution (RSV vac, preF A and preF B(PF)) albuterol sulfate 90 mcg/actuation 1 puff inhalation Q 4H PRN 09/16/24 aerosol inhaler shortness of breath or wheez ing #17 grams amlodipine 10 mg-atorvastatin 40 1 tab PO DAILY #90 ta bs 09/16/24 mg tablet budesonide 160 mcg-glycopyr 9 2 inh inhalation BID #32 .1 grams 09/16/24 mcg-formot 4.8 mcg/actuation HFA inhaler (Breztri Aerosphere) carvedilol 25 mg tablet 25 mg PO BID heart #180 tab s 09/16/24 famotidine 20 mg tablet 20 mg PO BID acid reflux #18 0 tabs 09/16/24 fluticasone propionate 50 2 spray intranasal DAILY all ergies 09/16/24 mcg/actuation nasal #16 grams spray,suspension gabapentin 300 mg capsule 300 mg PO .at bedtime PRN pa in #90 09/16/24 caps tramadol 50 mg tablet 100 mg (2 x 50 mg) PO .in AM pain 09/16/24 #60 tabs valsartan 320 1 tab PO DAILY #90 tabs 08/29 07/22 mg-hydrochlorothiazide 25 mg tablet (Diovan HCT) venlafaxine 75 mg capsule,extended 75 mg PO QAM #90 ca ps 09/16/24 release 24 hr (Effexor XR) ondansetron 4 mg disintegrating 4 mg PO Q8H PRN nausea and 11/04/24 tablet vomiting #10 tabs prednisone 20 mg tablet 20 mg PO DAILY copd #7 tabs 12/03/24 sulfamethoxazole 800 1 tab PO BID #14 tabs mg-trimethoprim 160 mg tablet Allergies Allergy/AdvReac Type Severity Reaction Status Date / Time Penicillins Allergy ALGY-Anaphy Verified 12/03/24 09:30 laxis Review of Systems 2 Const: Denies: fever(s) or chills Card: Denies: chest pain Resp: Reports: dyspnea, non-productive cough, wheezing and chest congestion GI: Denies: abdominal pain : Denies: dysuria, urinary frequency or urinary urgency Musc: Denies: neck pain or back pain Skin/Breast: Denies: rash PFSH ED 2 PFSH: Medical History COPD with exacerbation Smoker Left knee pain Localized osteoarthritis of left knee Allergic rhinitis due to allergen GERD (gastroesophageal reflux disease) Hyperlipidemia Opacity of lung on imaging study COPD (chronic obstructive pulmonary disease) Anxiety Early onset macular degeneration SVT (supraventricular tachycardia) Asthma Hypertension Traumatic partial tear of left biceps tendon Surgical History History of tonsillectomy and adenoidectomy Hx of hysterectomy History of cardiac radiofrequency ablation Family History Father Alcoholism Cancer esophageal Mother CAD (coronary artery disease) [place] Hypertension Grandfather CAD (coronary artery disease) [place] Family/Other CAD (coronary artery disease) [place] - uncle and aunt Alcoholism Cancer aunt--esophageal Sister Hypertension Denies family history of Diabetes Clotting disorder Dementia Hyperlipidemia Chronic kidney disease (CKD) Anesthesia complication Bleeding disorder Lung disease Stroke Social History (Reviewed 12/05/24 @ 05:55 by ARIES Ding Smoking and tobacco/nicotine status: current every day tobacco/nicotine user Alcohol intake: never Substance/Drug Use: never Caregiver/support person: No Lives independently: Yes Household members: none Marital status: Single Highest education level completed: Some College, No Degree service: No Current occupational status: employed 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 Do you think of yourself as: Straight/Heterosexual Current gender identity: Female Nelida/Sikh: Congregation Special nelida needs: No Agree to transfusion: Yes Physical Exam 2 Const: GENERAL APPEARANCE: cooperative ORIENTATION/CONSCIOUSNESS: Yes awake, Yes oriented to person, Yes oriented to place and Yes oriented to time HENMT: COMMON NORMALS: normocephalic, atraumatic and hearing grossly normal bilaterally HEAD & SCALP: normocephalic and atraumatic Resp: AUSCULTATION: rhonchi and wheezes Cardio: COMMON NORMALS: regular rate, regular rhythm and No murmurs present (Cardio) RATE: regular rate RHYTHM: regular rhythm GI: COMMON NORMALS: Soft to palpation and No hepatosplenomegaly present A USCULTATION: Yes normoactive bowel sounds PALPATION: Yes Soft to palpation, No Tenderness to palpation present (GI), No Guarding due to palpation present (GI) and Yes No hepatosplenomegaly present Extremity: COMMON NORMALS: normal to inspection, capillary refill normal, no clubbing, cyanosis or edema, no calf tenderness and no pedal edema Neuro: SENSORIUM/ORIENTATION: Yes oriented to person, Yes oriented to place and Yes oriented to time Skin: COMMON NORMALS: no rashes or lesions noted GENERAL SKIN EXAM: no rashes or lesions noted Course 2 Vital Signs: Vital signs: Vital Signs Temperature 98.7 F 12/05/24 05:30 Pulse Rate 71 12/05/24 05:51 Respiratory Rate 20 H 12/05/24 05:51 Blood Pressure 159/60 12/05/24 05:33 Pulse Oximetry 90 12/05/24 05:51 Oxygen Delivery Me thod Nasal Cannula 12/05/24 05:51 Oxygen Flow Rate 3 12/05/24 05:51 MDM - SOB/Dyspnea Medical Decision Making Influenza with COPD exacerbation. Not requiring oxygen. Interestingly patient states she has oxygen prescribed normally does not use that she is not requiring 3 L. She had mild improvement after nebulizer but still on 3 L maintaining sats just at 90% will place on observation aggressive pulmonary toilet nebs and steroids. Discussed with Dr. Dwayne edwardsist orders written Medical Records I reviewed the patient's medical records. Lab Data I reviewed the patient's lab results. 12/05/24 05:37 12/05/24 05:37 Labs/Radiology: Radiology Impressions Chest X-Ray 12/05/24 05:37 IMPRESSION: No acute findings. Laboratory Results WBC 7.67 10^3/uL (3.29-11.43) 12/05/24 05:37 RBC 4.68 10^6/uL (3.85-5.65) 12/05/24 05:37 Hgb 13.80 g/dL (11.27-16.99) 12/05/24 05:37 Hct 42.4 % (36-47) 12/05/24 05:37 MCV 90.6 fl (85-98) 12/05/24 05:37 MCH 29.5 pg (27-33) 12/05/24 05:37 MCHC 32.5 g/dL (30-55) 12/05/24 05:37 RDW 14.7 % (12.1-15.1) 12/05/24 05:37 Plt Count 237 10^3/cmm (157-399) 12/05/24 05:37 MPV 9.7 fL (7.4-10.4) 12/05/24 05:37 Neut % (Auto) 67.6 % 12/05/24 05:37 Lymph % (Auto) 22.7 % 12/05/24 05:37 [place] % (Auto) 8.0 % 12/05/24 05:37 Eos % (Auto) 1.3 % 12/05/24 05:37 Baso % (Auto) 0.3 % 12/05/24 05:37 Neut # (Auto) 5.19 10^3/uL (1.8-7.7) 12/05/24 05:37 Lymph # (Auto) 1.7 10^3/uL (0.8-4.8) 12/05/24 05:37 [place] # (Auto) 0.6 10^3/uL (0.2-0.9) 12/05/24 05:37 Eos # (Auto) 0.1 10^3/uL (0.0-0.8) 12/05/24 05:37 Baso # (Auto) 0.0 10^3/uL (0.0-0.1) 12/05/24 05:37 Nucleated RBC % (auto) 0 % 12/05/24 05:37 Nucleated RBCs # 0.0 /100WBC 12/05/24 05:37 Specimen Type Arterial 12/05/24 05:57 Sample Site Radial, left 12/05/24 05:57 ABG pH 7.46 (7.35-7.45) H 12/05/24 05:57 ABG pCO2 34.9 mmHg (35-45) L 12/05/24 05:57 ABG pO2 57.2 mmHg (80.0-100.0) L 12/05/24 05:57 ABG HCO3 24.7 mmol/L (22-26) 12/05/24 05:57 ABG O2 Saturation 91.5 12/05/24 05:57 ABG Base Excess 1.3 mmol/L (-2.0-2.0) 12/05/24 05:57 Jacky Test Pos 12/05/24 05:57 A-a O2 Gradient 6.5 mmHg (5-10) 12/05/24 05:57 Hematocrit 50.0 % (37-47) H 12/05/24 05:57 Hgb O2 Saturation 90.0 % (95-100) L 12/05/24 05:57 Carboxyhemoglobin 0.8 %THgb (0.4-20.1) 12/05/24 05:57 Methemoglobin 0.9 % (0.4-1.5) 12/05/24 05:57 Total Hemoglobin 16.3 g/dL (12-16) H 12/05/24 05:57 Sodium 136.0 mmol/L (131-143) 12/05/24 05:57 Potassium 7.1 mmol/L (3.5-5.0) H 12/05/24 05:57 Glucose 100.0 mg/dL (70-115) 12/05/24 05:57 Ionized Calcium 1.1 mmol/L (1.1-1.4) 12/05/24 05:57 O2 Delivery Device Nc 12/05/24 05:57 O2 Liters/Min 3.0 % 12/05/24 05:57 Rail Flaw Detector Operator ID Sara 12/05/24 05:57 Sodium 139 mmol/L (136-145) 12/05/24 05:37 Potassium 3.9 mmol/L (3.5-5.1) 12/05/24 05:37 Chloride 100 mmol/L (98-107) 12/05/24 05:37 Carbon Dioxide 26 mmol/L (22-29) 12/05/24 05:37 Anion Gap 16.9 (5-19) 12/05/24 05:37 BUN 14 mg/dL (8-23) 12/05/24 05:37 Creatinine 0.8 mg/dL (0.5-0.9) 12/05/24 05:37 GFR Calculation 71.3 mL/min (90-130) L 12/05/24 05:37 Glucose 102 mg/dL (65-115) 12/05/24 05:37 Calculated Osmolality 289 mOsm/kg (285-295) 12/05/24 05:37 Calcium 9.2 mg/dL (8.5-10.5) 12/05/24 05:37 Total Bilirubin 0.2 mg/dL (0.15-1.2) 12/05/24 05:37 AST 31 U/L (0-32) 12/05/24 05:37 ALT 23 U/L (0-33) 12/05/24 05:37 Alkaline Phosphatase 83 U/L (35-105) 12/05/24 05:37 Total Protein 7.6 g/dL (6.6-8.7) 12/05/24 05:37 Albumin 4.6 g/dL (3.5-5.2) 12/05/24 05:37 Globulin 3.0 g/dL (1.3-4.6) 12/05/24 05:37 All radiology interpretation(s) finalized by discharge Discharge Plan Discharge Patient Disposition: Placed in Observation Clinical Impression: Acute exacerbation of chronic obstructive airways disease, Influenza A, Smoker Coding Level of Care Code ED Garbage Man for Johnny Mcgowan
[2024-12-05] MEDS: methylPREDNISolone sod succ 125 mg/2 mL INJ IVP ×2 (05:43→08:29)
[2024-12-05 05:45] LABS: Basophils % 0.3 %; Eosinophils # 0.1 10^3/uL (0.0-0.8); Eosinophils % 1.3 %; Hematocrit 42.4 % (36-47); Lymphocytes # 1.7 10^3/uL (0.8-4.8); Lymphocytes % 22.7 %; Mean Corpuscular HGB Conc 32.5 g/dL (30-55); Mean Corpuscular Hemoglobin 29.5 pg (27-33); Mean Corpuscular Volume 90.6 fl (85-98); Mean Platelet Volume 9.7 fL (7.4-10.4); Monocytes # 0.6 10^3/uL (0.2-0.9); Neutrophils # 5.19 10^3/uL (1.8-7.7); Neutrophils % 67.6 %; Nucleated Red Blood Cells % 0 %; Platelet Count 237 10^3/cmm (157-399); Red Blood Count 4.68 10^6/uL (3.85-5.65); Red Cell Distribution Width 14.7 % (12.1-15.1); White Blood Count 7.67 10^3/uL (3.29-11.43)
[2024-12-05] MEDS: ipratropium-albuterol 3 mL Neb INHALATION ×4 (05:49→20:55)
[2024-12-05 06:04] LABS: Alanine Aminotransferase 23 U/L (0-33); Albumin Level 4.6 g/dL (3.5-5.2); Alkaline Phosphatase 83 U/L (35-105); Anion Gap 16.9 (5-19); Aspartate Amino Transferase 31 U/L (0-32); Blood Urea Nitrogen 14 mg/dL (8-23); Calcium 9.2 mg/dL (8.5-10.5); Carbon Dioxide 26 mmol/L (22-29); Chloride 100 mmol/L (98-107); Creatinine Clr Calc Pharmacy 61.8192; Glomerular Filtration Rate 71.3 mL/min (90-130); Glucose 102 mg/dL (65-115); Osmolality Calculated 289 mOsm/kg (285-295); Potassium 3.9 mmol/L (3.5-5.1); Sodium 139 mmol/L (136-145); Total Bilirubin 0.2 mg/dL (0.15-1.2); Total Protein 7.6 g/dL (6.6-8.7)
[2024-12-05 06:09] LABS: ABG PCO2 34.9 mmHg (35-45); ABG PH Result 7.46 (7.35-7.45); Alveolar-Arterial Oxygen Gradi 6.5 mmHg (5-10); Base Excess ABG 1.3 mmol/L (-2.0-2.0); Blood Gas Allen Test Pos; Blood Gas Operator Identificat BUSJA; Blood Gas Sample Site Radial, left; Blood Gas Sample Type Arterial; Carboxyhemoglobin 0.8 %THgb (0.4-20.1); HCO3 ABG 24.7 mmol/L (22-26); Ionized Calcium Level - ABG 1.1 mmol/L (1.1-1.4); Methemoglobin 0.9 % (0.4-1.5); Oxygen Device NC; Oxygen Saturation ABG 91.5; PO2 ABG 57.2 mmHg (80.0-100.0); Potassium Level - ABG 7.1 mmol/L (3.5-5.0); Total Hemoglobin 16.3 g/dL (12-16)
--- NOTE | 2024-12-05 08:00 | PM.HP ---
Providers/Chief Complaint Admitting Physician: Doc Rice MD Primary Care Provider: Sushila Begum, REFLESHER-C Chief Complaint: Can Not Breathe History of Present Illness Pleasant 68-year-old lady with history of asthma, COPD, smoking, has been feeling unwell for several days with cough, dyspnea, only scant sputum production, with bodyaches, mild headache, a couple days ago for some diarrhea. Her symptoms are not been improving, she has been getting more short of breath, and came in to the ER with complaint of not being able to breathe. In the ER she was found to be hypoxic, initial oxygen saturation down to 89% with starting oxygen. pO2 57.2 on 3 L nasal cannula. Test for influenza A positive on 12/03. Review of Systems Const: Reports: body aches and malaise; Denies: fever(s) ENMT: Denies: throat pain Card: Denies: chest pain, edema, pre-syncope or dyspnea on exertion Resp: Reports: dyspnea, non-productive cough and wheezing; Denies: productive cough, change in phlegm color or hemoptysis GI: Reports: diarrhea; Denies: abdominal pain, nausea, vomiting, constipation, hematochezia or melena : Denies: flank pain, urinary frequency or hematuria Musc: Denies: back pain, joint swelling or joint redness Skin/Breast: Denies: rash or new lesions Neuro: Denies: headache(s), dizziness or confusion Medications/Allergies Home Medications ?Medication ?Instructions ?Recorded ?Confirmed ?Last Taken ?Type clonidine HCl 0.1 mg tablet 0.1 mg PO Q12H PRN hypertensive 09/12/23 12/05/24 Unknown Rx values #60 tabs albuterol sulfate 90 mcg/actuation 1 puff inhalation Q4H PRN 09/16/24 12/05/24 Unknown Rx aerosol inhaler shortness of breath or wheezing #17 grams amlodipine 10 mg-atorvastatin 40 1 tab PO DAILY #90 tabs 09/16/24 12/05/24 12/04/24 Rx mg tablet budesonide 160 mcg-glycopyr 9 2 inh inhalation BID #32.1 grams 09/16/24 12/05/24 12/04/24 Rx mcg-formot 4.8 mcg/actuation HFA inhaler (Breztri Aerosphere) carvedilol 25 mg tablet 25 mg PO BID heart #180 tabs 09/16/24 12/05/24 12/04/24 Rx famotidine 20 mg tablet 20 mg PO BID acid reflux #180 tabs 09/16/24 12/05/24 12/04/24 Rx gabapentin 300 mg capsule 300 mg PO .at bedtime PRN pain #90 09/16/24 12/05/24 12/04/24 Rx caps tramadol 50 mg tablet 100 mg (2 x 50 mg) PO .in AM pain 09/16/24 12/05/24 12/04/24 Rx #60 tabs valsartan 320 1 tab PO DAILY #90 tabs 09/16/24 12/05/24 12/04/24 Rx mg-hydrochlorothiazide 25 mg tablet (Diovan HCT) venlafaxine 75 mg capsule,extended 75 mg PO QAM #90 caps 09/16/24 12/05/24 12/04/24 Rx release 24 hr (Effexor XR) ondansetron 4 mg disintegrating 4 mg PO Q8H PRN nausea and 11/04/24 12/05/24 Unknown Rx tablet vomiting #10 tabs sulfamethoxazole 800 1 tab PO BID #14 tabs 12/03/24 12/05/24 12/04/24 Rx mg-trimethoprim 160 mg tablet fluticasone propionate 50 2 spray intranasal DAILY PRN 12/05/24 12/05/24 12/04/24 History mcg/actuation nasal allergies spray,suspension hydralazine 25 mg tablet 25 mg PO Q12H PRN hypertension 12/05/24 12/05/24 Unknown History prednisone 20 mg tablet 20 mg PO DAILY PRN copd 12/05/24 12/05/24 Unknown History spironolactone 25 mg tablet 25 mg PO DAILY 12/05/24 12/05/24 12/04/24 History Allergies Allergy/AdvReac Type Severity Reaction Status Date / Time Penicillins Allergy ALGY-Anaphy Verified 12/03/24 09:30 laxis PFSH Acute PFSH: Medical History COPD with exacerbation Smoker Left knee pain Localized osteoarthritis of left knee Allergic rhinitis due to allergen GERD (gastroesophageal reflux disease) Hyperlipidemia Opacity of lung on imaging study COPD (chronic obstructive pulmonary disease) Anxiety Early onset macular degeneration SVT (supraventricular tachycardia) Asthma Hypertension Traumatic partial tear of left biceps tendon Surgical History History of tonsillectomy and adenoidectomy Hx of hysterectomy History of cardiac radiofrequency ablation Family History Father Alcoholism Cancer esophageal Mother CAD (coronary artery disease) [place] Hypertension Grandfather CAD (coronary artery disease) [place] Family/Other CAD (coronary artery disease) [place] - uncle and aunt Alcoholism Cancer aunt--esophageal Sister Hypertension Denies family history of Diabetes Clotting disorder Dementia Hyperlipidemia Chronic kidney disease (CKD) Anesthesia complication Bleeding disorder Lung disease Stroke Social History Smoking and tobacco/nicotine status: current every day tobacco/nicotine user Alcohol intake: never Substance/Drug Use: never Caregiver/support person: No Lives independently: Yes Household members: none Marital status: Single Highest education level completed: Some College, No Degree service: No Current occupational status: employed 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 Do you think of yourself as: Straight/Heterosexual Current gender identity: Female Nelida/Yarsanism: Restoration Special nelida needs: No Agree to transfusion: Yes Vitals/I&O/Wt Last Vital Signs Temp 98.7 F 12/05/24 05:30 Pulse 68 12/05/24 07:07 Resp 20 H 12/05/24 05:51 BP 138/90 12/05/24 07:07 Pulse Ox 93 12/05/24 07:07 O2 Del Method Nasal Cannula 12/05/24 05:51 O2 Flow Rate 3 12/05/24 05:51 Weight last 48 hrs Weight 70.307 kg Physical Exam Const: COMMON NORMALS: patient oriented x3 and alert GENERAL APPEARANCE: cooperative ORIENTATION/CONSCIOUSNESS: Yes awake HENMT: COMMON NORMALS: oropharynx normal Neck/C-Spine: COMMON NORMALS: no JVD Resp: AUSCULTATION: rhonchi, wheezes and diminished lung sounds Cardio: COMMON NORMALS: no JVD, regular rhythm, S1 normal heart sound present, S2 normal heart sound present and No murmurs present (Cardio) RHYTHM: regular rhythm HEART SOUNDS: S1 normal heart sound present and S2 normal heart sound present GI: COMMON NORMALS: Normal to inspection, nondistended, normoactive bowel sounds present, Soft to palpation and non-tender PALPATION: Yes Soft to palpation Extremity: COMMON NORMALS: no joint enlargement and no pedal edema Neuro: COMMON NORMALS: patient oriented x3 and moves all extremities SENSORIUM/ORIENTATION: Yes alert Skin: COMMON NORMALS: no rashes or lesions noted GENERAL SKIN EXAM: no rashes or lesions noted Data 12/05/24 05:37 12/05/24 05:37 A&P Assessment and plan (1) Influenza A: Severe influenza A infection with new hypoxia, with severe shortness of breath, cough, diminished air entry, bilateral wheezing, mild rhonchi. With bodyaches, malaise, some diarrhea. Given severity of illness, underlying conditions will give Tamiflu. Continue oxygen support, COPD exacerbation, asthma exacerbation. Maintain isolation. Monitor for risk of development of secondary pneumonia. (2) COPD with exacerbation: COPD with moderate to severe exacerbation with severe dyspnea, on presentation could not breathe, with hypoxia, not normally on oxygen, here presentation starting 3 L saturation 89%, ABG 7.46, CO2 34.9, O2 57.2 on 3 L. Discussed with respiratory therapist. At current time without need for NIPPV. Reviewed vitals, COPD, ABG,, chest x-ray. CMP chest x-ray without acute findings to suggest secondary pneumonia. Reviewed ER provider note. She is producing some sputum, although it is a scant amount. Appears to have COPD and asthma overlap syndrome. Both with exacerbation, discussed with her we will continue IV steroid for COPD and asthma exacerbation. For now without antibiotic, although will check procalcitonin, CRP. Additionally in case of increase of secretions, purulent appearance, antibiotic may be added. She is agreeable. Sputum culture if she is able to provide. (3) Asthma: Asthma with exacerbation, bilateral wheezing, decreased air entry, dyspnea, in the setting of influenza A infection. Will continue IV Solu-Medrol, monitor for risk of hyperglycemia, hypertension, encephalopathy, gastritis, C. difficile. Reviewed blood glucose, blood pressure. Continue antihypertensives. Continue oxygen support. Continue breathing treatments. Qualifiers: Asthma severity: moderate Asthma persistence: persistent Asthma complication type: with acute exacerbation Qualified Code(s): J45.41 - Moderate persistent asthma with (acute) exacerbation (4) Hypoxia: New hypoxia, not normally on oxygen, secondary to severe asthma exacerbation, COPD exacerbation. Influenza A infection. Continue oxygen support. Treat underlying conditions as above. Plan Smoking addiction: Discussed most cessation with her for 3-1/2 minutes, she has been trying to quit, now uses a pack over about 3 to 4 days. Discussed with her, will provide nicotine patch and lozenges for cravings. She is agreeable. Continue to encourage cessation. GERD: Continue famotidine. HTN: Continue carvedilol, amlodipine, spironolactone, valsartan-HCTZ PDMP PDMP Reviewed: Not Reviewed Attestations Medical Necessity Statement*: Admission over 2 midnights anticipated for assessment management of severe asthma exacerbation with new hypoxia, COPD exacerbation, severe influenza A infection and a lady with underlying COPD and asthma overlap syndrome, smoking. Diagnoses Influenza A J10.1 COPD with exacerbation J44.1 Moderate persistent asthma with acute exacerbation J45.41 Asthma severity: moderate Asthma persistence: persistent Asthma complication type: with acute exacerbation Hypoxia R09.02
[2024-12-05] MEDS: TRAMadol 50 mg Tablet 100 MG PO (08:30)
[2024-12-05] MEDS: spironolactone 25 mg Tablet PO (08:30)
[2024-12-05] MEDS: losartan 50 mg Tablet 100 MG PO (08:31)
[2024-12-05] MEDS: carvedilol 25 mg Tablet PO ×2 (08:31→17:24)
[2024-12-05] MEDS: famotidine 20 mg Tablet PO ×2 (08:31→17:24)
[2024-12-05] MEDS: hydroCHLOROthiazide 25 mg Tablet PO (08:31)
[2024-12-05 08:33] LABS: C Reactive Protein 11.7 mg/L (0.0-4.9)
[2024-12-05 08:40] LABS: Procalcitonin 0.04 ng/mL (0-0.5)
[2024-12-05] MEDS: nicotine 14 mg Patch 1 PATCH TRANSDERMA (08:56)
[2024-12-05] MEDS: enoxaparin 40 mg/0.4 mL Syringe SUBCUT (08:57)
[2024-12-05] MEDS: amlodipine 10 mg Tablet PO (08:57)
[2024-12-05] MEDS: acetaminophen 325 mg Tablet 650 MG PO (12:28)
[2024-12-05] MEDS: methylPREDNISolone sod succ 40 mg/mL INJ IVP ×2 (15:15→21:39)
[2024-12-05] MEDS: oseltamivir phosphate 75 mg Capsule PO (15:15)
[2024-12-05] MEDS: atorvastatin 40 mg Tablet PO (21:39)
[2024-12-06] VITALS (14 sets, daily range): BP systolic 99–164; BP diastolic 48–71; PULSE 56–74; RESP 14–19; TEMP 36.5–36.8; O2SAT 86–93
[2024-12-06] MEDS: ipratropium-albuterol 3 mL Neb INHALATION ×4 (01:57→20:12)
[2024-12-06] MEDS: ondansetron 2 mg/ML SDV 2 mL 4 MG IVP (03:11)
[2024-12-06 05:16] LABS: Basophils % 0.1 %; Hematocrit 38.3 % (36-47); Lymphocytes # 1.1 10^3/uL (0.8-4.8); Lymphocytes % 13.3 %; Mean Corpuscular HGB Conc 32.1 g/dL (30-55); Mean Corpuscular Hemoglobin 29.6 pg (27-33); Mean Corpuscular Volume 92.1 fl (85-98); Mean Platelet Volume 9.6 fL (7.4-10.4); Monocytes # 0.6 10^3/uL (0.2-0.9); Monocytes % 6.8 %; Neutrophils # 6.63 10^3/uL (1.8-7.7); Neutrophils % 79.3 %; Nucleated Red Blood Cells % 0 %; Platelet Count 207 10^3/cmm (157-399); Red Blood Count 4.16 10^6/uL (3.85-5.65); Red Cell Distribution Width 14.4 % (12.1-15.1); White Blood Count 8.36 10^3/uL (3.29-11.43)
[2024-12-06] MEDS: methylPREDNISolone sod succ 40 mg/mL INJ IVP ×2 (05:43→14:02)
[2024-12-06] MEDS: TRAMadol 50 mg Tablet 100 MG PO (05:43)
[2024-12-06] MEDS: venlafaxine ER (24HR) 75 mg Capsule PO (05:43)
[2024-12-06 05:46] LABS: Anion Gap 16.3 (5-19); Blood Urea Nitrogen 22 mg/dL (8-23); Calcium 9.5 mg/dL (8.5-10.5); Carbon Dioxide 26 mmol/L (22-29); Chloride 103 mmol/L (98-107); Creatinine Clr Calc Pharmacy 62.4555; Glomerular Filtration Rate 83.2 mL/min (90-130); Glucose 159 mg/dL (65-115); Osmolality Calculated 299 mOsm/kg (285-295); Potassium 4.3 mmol/L (3.5-5.1); Sodium 141 mmol/L (136-145)
[2024-12-06] MEDS: spironolactone 25 mg Tablet PO (08:48)
[2024-12-06] MEDS: hydroCHLOROthiazide 25 mg Tablet PO (08:48)
[2024-12-06] MEDS: enoxaparin 40 mg/0.4 mL Syringe SUBCUT (08:48)
[2024-12-06] MEDS: famotidine 20 mg Tablet PO ×2 (08:48→17:49)
[2024-12-06] MEDS: amlodipine 10 mg Tablet PO (08:49)
[2024-12-06] MEDS: carvedilol 25 mg Tablet PO ×2 (08:49→17:49)
[2024-12-06] MEDS: nicotine 14 mg Patch 1 PATCH TRANSDERMA (08:49)
[2024-12-06] MEDS: losartan 50 mg Tablet 100 MG PO (08:49)
[2024-12-06] MEDS: oseltamivir phosphate 75 mg Capsule PO ×2 (08:49→17:49)
[2024-12-06 13:20] LABS: Iron 50 ug/dL (37-145); Total Iron Binding Capacity 277 mcg/dl; Unsaturated Iron Binding 227 ug/dL (112-347)
[2024-12-06 13:35] LABS: Procalcitonin 0.04 ng/mL (0-0.5); Vitamin B12 520 pg/mL (232-1245)
[2024-12-06] MEDS: guaiFENesin-dextromethorphan UDC 10 mL 5 ML PO (14:01)
[2024-12-06] MEDS: FUROsemide 10 mg/mL SDV 4mL 40 MG IVP (14:02)
--- NOTE | 2024-12-06 15:11 | P.PN_ITS ---
Subjective 2 Subjective: Hospital course, labs appreciated. Today morning patient seen sitting up in chair. Off oxygen. Denies any nausea, vomiting, headache. Complaining of shortness of breath on exertion. Requiring up to 2 L otherwise to maintain saturation over 88%. Vitals/I&O/Wt Last Vital Signs Temp 98.0 F 12/06/24 11:46 Pulse 59 L 12/06/24 14:16 Resp 16 12/06/24 14:16 BP 109/60 12/06/24 11:46 Pulse Ox 90 12/06/24 14:16 O2 Del Method Nasal Cannula 12/06/24 14:16 O2 Flow Rate 2 12/06/24 14:16 12/06/24 12/06/24 12/06/24 06:59 14:59 22:59 Intake Total 480 / 480 Balance 480 / 480 Weight last 48 hrs Weight 71.804 kg Weight 71.804 kg Weight 70.307 kg Physical Exam 2 Const: COMMON NORMALS: patient oriented x3 and alert GENERAL APPEARANCE: c ooperative ORIENTATION/CONSCIOUSNESS: Yes awake HENMT: COMMON NORMALS: oropharynx normal Neck/C-Spine: COMMON NORMALS: no JVD Resp: AUSCULTATION: rhonchi, wheezes and diminished lung sounds Cardio: COMMON NORMALS: no JVD, regular rhythm, S1 normal heart sound present, S2 normal heart sound present and No murmurs present (Cardio) RHYTHM: regular rhythm HEART SOUNDS: S1 normal heart sound present and S2 normal heart sound present GI: COMMON NORMALS: Normal to inspection, nondistended, normoactive bowel sounds present, Soft to palpation and non-tender PALPATION: Yes Soft to palpation Extremity: COMMON NORMALS: no joint enlargement and no pedal edema Neuro: COMMON NORMALS: patient oriented x3 and moves all extremities S ENSORIUM/ORIENTATION: Yes alert Skin: COMMON NORMALS: no rashes or lesions noted GENERAL SKIN EXAM: no rashes or lesions noted Data 12/06/24 05:05 12/06/24 05:05 A&P Assessment and plan (1) Influenza A: Normal supportive treatment. Tamiflu 75 mg twice daily for 5 days. Incentive spirometry. Pulmicort twice daily, DuoNeb every 6 hour. Oxygen supplementation keeping saturation over 90%. Does have history of COPD. Is a chronic smoker. Robitussin as needed. (2) COPD with exacerbation: Due to influenza. Nebulization treatment. Wean Solu-Medrol 40 mg every 12 hourly. Will plan to discharge on steroid taper. Oxygen supplementation keeping saturation over 88 to 90%. IV Lasix 40 mg one-time. (3) Asthma: Asthma with exacerbation, bilateral wheezing, decreased air entry, dyspnea, in the setting of influenza A infection. Will continue IV Solu-Medrol, monitor for risk of hyperglycemia, hypertension, encephalopathy, gastritis, C. difficile. Reviewed blood glucose, blood pressure. Continue antihypertensives. Continue oxygen support. Continue breathing treatments. Qualifiers: Asthma severity: moderate Asthma persistence: persistent Asthma complication type: with acute exacerbation Qualified Code(s): J45.41 - Moderate persistent asthma with (acute) exacerbation (4) Hypoxia: Will need oxygen evaluation on discharge. Plan Smoking addiction: Discussed most cessation with her for 3-1/2 minutes, she has been trying to quit, now uses a pack over about 3 to 4 days. Discussed with her, will provide nicotine patch and lozenges for cravings. She is agreeable. Continue to encourage cessation. GERD: Continue famotidine. HTN: Goal blood pressure less than 140/90 MAG. On multiple antihypertensives at home. Continue home doses of carvedilol, amlodipine, spironolactone, valsartan-HCTZ. Patient slightly bradycardic overnight. Will continue to monitor. Full code Cardiac diet Famotidine for PUD prophylaxis Lovenox for DVT prophylaxis PDMP PDMP Reviewed: Not Reviewed Attestations 2 Medical Necessity Statement*: Requires further hospitalization for management of hypoxic respiratory failure in setting of COPD exacerbation due to influenza A in a patient with history of hypertension, chronic smoker Diagnoses Influenza A J10.1 COPD with exacerbation J44.1 Moderate persistent asthma with acute exacerbation J45.41 Asthma severity: moderate Asthma persistence: persistent Asthma complication type: with acute exacerbation Hypoxia R09.02
[2024-12-06] MEDS: budesonide 0.5 mg/2 mL Neb INHALATION (20:11)
[2024-12-06] MEDS: atorvastatin 40 mg Tablet PO (20:43)
[2024-12-06] MEDS: ondansetron hcl ODT 4 mg Tab PO (20:43)
[2024-12-07] VITALS (9 sets, daily range): BP systolic 134–152; BP diastolic 69–79; PULSE 64–89; RESP 17–18; TEMP 36.6–36.7; O2SAT 85–94
[2024-12-07] MEDS: methylPREDNISolone sod succ 40 mg/mL INJ IVP (00:08)
[2024-12-07] MEDS: ipratropium-albuterol 3 mL Neb INHALATION ×2 (01:47→07:40)
[2024-12-07] MEDS: acetaminophen 325 mg Tablet 650 MG PO (02:32)
[2024-12-07 05:30] LABS: Basophils % 0.1 %; Hematocrit 39.5 % (36-47); Lymphocytes # 1.4 10^3/uL (0.8-4.8); Lymphocytes % 12.3 %; Mean Corpuscular HGB Conc 32.2 g/dL (30-55); Mean Corpuscular Hemoglobin 29.3 pg (27-33); Mean Corpuscular Volume 91.2 fl (85-98); Mean Platelet Volume 10.5 fL (7.4-10.4); Monocytes # 0.5 10^3/uL (0.2-0.9); Monocytes % 4.1 %; Neutrophils # 9.75 10^3/uL (1.8-7.7); Neutrophils % 82.9 %; Nucleated Red Blood Cells % 0 %; Platelet Count 241 10^3/cmm (157-399); Red Blood Count 4.33 10^6/uL (3.85-5.65); Red Cell Distribution Width 14.3 % (12.1-15.1); White Blood Count 11.75 10^3/uL (3.29-11.43)
[2024-12-07] MEDS: TRAMadol 50 mg Tablet 100 MG PO (05:36)
[2024-12-07] MEDS: venlafaxine ER (24HR) 75 mg Capsule PO (05:36)
[2024-12-07 05:54] LABS: Alanine Aminotransferase 20 U/L (0-33); Alkaline Phosphatase 73 U/L (35-105); Anion Gap 18.1 (5-19); Aspartate Amino Transferase 16 U/L (0-32); Blood Urea Nitrogen 24 mg/dL (8-23); Carbon Dioxide 26 mmol/L (22-29); Chloride 99 mmol/L (98-107); Creatinine Clr Calc Pharmacy 62.4555; Globulin 2.6 g/dL (1.3-4.6); Glomerular Filtration Rate 71.3 mL/min (90-130); Glucose 122 mg/dL (65-115); Osmolality Calculated 293 mOsm/kg (285-295); Potassium 4.1 mmol/L (3.5-5.1); Sodium 139 mmol/L (136-145); Total Bilirubin 0.2 mg/dL (0.15-1.2); Total Protein 6.6 g/dL (6.6-8.7)
[2024-12-07 06:07] LABS: Folate Level 15.6 ng/mL (4.8-37.3)
[2024-12-07] MEDS: budesonide 0.5 mg/2 mL Neb INHALATION (07:40)
[2024-12-07] MEDS: carvedilol 25 mg Tablet PO (09:47)
[2024-12-07] MEDS: famotidine 20 mg Tablet PO (09:47)
[2024-12-07] MEDS: losartan 50 mg Tablet 100 MG PO (09:47)
[2024-12-07] MEDS: hydroCHLOROthiazide 25 mg Tablet PO (09:47)
[2024-12-07] MEDS: spironolactone 25 mg Tablet PO (09:48)
[2024-12-07] MEDS: amlodipine 10 mg Tablet PO (09:48)
[2024-12-07] MEDS: nicotine 14 mg Patch 1 PATCH TRANSDERMA (09:48)
[2024-12-07] MEDS: enoxaparin 40 mg/0.4 mL Syringe SUBCUT (09:48)
[2024-12-07] MEDS: oseltamivir phosphate 75 mg Capsule PO (09:48)
--- NOTE | 2024-12-07 12:00 | PM.DCS ---
Discharge Providers Date of Admission: 12/05/24 07:03 Date of Discharge: December 07, 2024 Attending Provider at Admission: Doc Rice MD Attending Provider at Discharge: Bob Beck MD Primary Care Provider: CRAIG Bourgeois Diagnoses at Discharge Discharge Diagnosis (1) Influenza A: Status: Acute (2) COPD with exacerbation: Status: Acute (3) Asthma: Status: Acute Qualifiers: Asthma complication type: with acute exacerbation Asthma persistence: persistent Asthma severity: moderate Qualified Code(s): J45.41 - Moderate persistent asthma with (acute) exacerbation (4) Hypoxia: Status: Acute Reason for Visit Reason for Visit: Can Not Breathe Brief History: History as per HPI: Pleasant 68-year-old lady with history of asthma, COPD, smoking, has been feeling unwell for several days with cough, dyspnea, only scant sputum production, with bodyaches, mild headache, a couple days ago for some diarrhea. Her symptoms are not been improving, she has been getting more short of breath, and came in to the ER with complaint of not being able to breathe. In the ER she was found to be hypoxic, initial oxygen saturation down to 89% with starting oxygen. pO2 57.2 on 3 L nasal cannula. Test for influenza A positive on 12/03. Hospital Course Hospital Course Patient was admitted to the also further evaluation and management of hypoxic respiratory failure in setting of COPD exacerbation due to influenza A. She was started on treatment with Tamiflu, nebulization, steroids and empiric IV antibiotics. She responded well to the treatment. Home O2 evaluation has been done prior to discharge. She has been discharged home in hemodynamically stable condition on oral steroid taper, nebulization treatment, Tamiflu for 3 more days with advised to stop smoking. Physical Exam Const: COMMON NORMALS: patient oriented x3 and alert GENERAL APPEARANCE: cooperative ORIENTATION/CONSCIOUSNESS: Yes awake HENMT: COMMON NORMALS: oropharynx normal Neck/C-Spine: COMMON NORMALS: no JVD Resp: AUSCULTATION: rhonchi, wheezes and diminished lung sounds Cardio: COMMON NORMALS: no JVD, regular rhythm, S1 normal heart sound present, S2 normal heart sound present and No murmurs present (Cardio) RHYTHM: regular rhythm HEART SOUNDS: S1 normal heart sound present and S2 normal heart sound present GI: COMMON NORMALS: Normal to inspection, nondistended, normoactive bowel sounds present, Soft to palpation and non-tender PALPATION: Yes Soft to palpation Extremity: COMMON NORMALS: no joint enlargement and no pedal edema Neuro: COMMON NORMALS: patient oriented x3 and moves all extremities SENSORIUM/ORIENTATION: Yes alert Skin: COMMON NORMALS: no rashes or lesions noted GENERAL SKIN EXAM: no rashes or lesions noted Discharge Data Studies Completed and Pending Completed Studies During Hospitalization Category Date Time Status XR chest 1V portable [id number] Stat Exams 12/05/24 05:37 Completed Pending at discharge Category Date Time Status Complete Blood Count w/Auto AM LABS Lab 12/08/24 04:00 Ordered MAG [Magnesium] AM LABS Lab 12/08/24 04:00 Ordered MAG [Magnesium] AM LABS Lab 12/09/24 04:00 Ordered Sputum Culture and Gram Stain Routine Lab 12/05/24 08:09 Uncollected Radiology Impressions Chest X-Ray 12/05/24 05:37 IMPRESSION: No acute findings. Laboratory Results WBC 11.75 10^3/uL (3.29-11.43) H 12/07/24 04:30 RBC 4.33 10^6/uL (3.85-5.65) 12/07/24 04:30 Hgb 12.70 g/dL (11.27-16.99) 12/07/24 04:30 Hct 39.5 % (36-47) 12/07/24 04:30 MCV 91.2 fl (85-98) 12/07/24 04:30 MCH 29.3 pg (27-33) 12/07/24 04:30 MCHC 32.2 g/dL (30-55) 12/07/24 04:30 RDW 14.3 % (12.1-15.1) 12/07/24 04:30 Plt Count 241 10^3/cmm (157-399) 12/07/24 04:30 MPV 10.5 fL (7.4-10.4) H 12/07/24 04:30 Neut % (Auto) 82.9 % 12/07/24 04:30 Lymph % (Auto) 12.3 % 12/07/24 04:30 [place] % (Auto) 4.1 % 12/07/24 04:30 Eos % (Auto) 0.0 % 12/07/24 04:30 Baso % (Auto) 0.1 % 12/07/24 04:30 Neut # (Auto) 9.75 10^3/uL (1.8-7.7) H 12/07/24 04:30 Lymph # (Auto) 1.4 10^3/uL (0.8-4.8) 12/07/24 04:30 [place] # (Auto) 0.5 10^3/uL (0.2-0.9) 12/07/24 04:30 Eos # (Auto) 0.0 10^3/uL (0.0-0.8) 12/07/24 04:30 Baso # (Auto) 0.0 10^3/uL (0.0-0.1) 12/07/24 04:30 Nucleated RBC % (auto) 0 % 12/07/24 04:30 Nucleated RBCs # 0.0 /100WBC 12/07/24 04:30 Specimen Type Arterial 12/05/24 05:57 Sample Site Radial, left 12/05/24 05:57 ABG pH 7.46 (7.35-7.45) H 12/05/24 05:57 ABG pCO2 34.9 mmHg (35-45) L 12/05/24 05:57 ABG pO2 57.2 mmHg (80.0-100.0) L 12/05/24 05:57 ABG HCO3 24.7 mmol/L (22-26) 12/05/24 05:57 ABG O2 Saturation 91.5 12/05/24 05:57 ABG Base Excess 1.3 mmol/L (-2.0-2.0) 12/05/24 05:57 Jacky Test Pos 12/05/24 05:57 A-a O2 Gradient 6.5 mmHg (5-10) 12/05/24 05:57 Hematocrit 50.0 % (37-47) H 12/05/24 05:57 Hgb O2 Saturation 90.0 % (95-100) L 12/05/24 05:57 Carboxyhemoglobin 0.8 %THgb (0.4-20.1) 12/05/24 05:57 Methemoglobin 0.9 % (0.4-1.5) 12/05/24 05:57 Total Hemoglobin 16.3 g/dL (12-16) H 12/05/24 05:57 Sodium 136.0 mmol/L (131-143) 12/05/24 05:57 Potassium 7.1 mmol/L (3.5-5.0) H 12/05/24 05:57 Glucose 100.0 mg/dL (70-115) 12/05/24 05:57 Ionized Calcium 1.1 mmol/L (1.1-1.4) 12/05/24 05:57 O2 Delivery Device Nc 12/05/24 05:57 O2 Liters/Min 3.0 % 12/05/24 05:57 Auto Roller ID Busja 12/05/24 05:57 Sodium 139 mmol/L (136-145) 12/07/24 04:30 Potassium 4.1 mmol/L (3.5-5.1) 12/07/24 04:30 Chloride 99 mmol/L (98-107) 12/07/24 04:30 Carbon Dioxide 26 mmol/L (22-29) 12/07/24 04:30 Anion Gap 18.1 (5-19) 12/07/24 04:30 BUN 24 mg/dL (8-23) H 12/07/24 04:30 Creatinine 0.8 mg/dL (0.5-0.9) 12/07/24 04:30 GFR Calculation 71.3 mL/min (90-130) L 12/07/24 04:30 Glucose 122 mg/dL (65-115) H 12/07/24 04:30 Calculated Osmolality 293 mOsm/kg (285-295) 12/07/24 04:30 Calcium 9.0 mg/dL (8.5-10.5) 12/07/24 04:30 Magnesium 2.0 mg/dL (1.7-2.3) 12/07/24 04:30 Iron 50 ug/dL (37-145) 12/06/24 05:05 TIBC 277 mcg/dl 12/06/24 05:05 % Saturation 18.0 % (20-50) L 12/06/24 05:05 Unsat Iron Binding 227 ug/dL (112-347) 12/06/24 05:05 Total Bilirubin 0.2 mg/dL (0.15-1.2) 12/07/24 04:30 AST 16 U/L (0-32) 12/07/24 04:30 ALT 20 U/L (0-33) 12/07/24 04:30 Alkaline Phosphatase 73 U/L (35-105) 12/07/24 04:30 C-Reactive Protein 11.7 mg/L (0.0-4.9) H 12/05/24 05:37 Total Protein 6.6 g/dL (6.6-8.7) 12/07/24 04:30 Albumin 4.0 g/dL (3.5-5.2) 12/07/24 04:30 Globulin 2.6 g/dL (1.3-4.6) 12/07/24 04:30 Vitamin B12 520 pg/mL (232-1245) 12/06/24 05:05 Folate 15.6 ng/mL (4.8-37.3) 12/07/24 04:30 Procalcitonin 0.04 ng/mL (0-0.5) 12/06/24 05:05 Vitals Last Vital Signs Temp 98.0 F 12/07/24 11:25 Pulse 65 12/07/24 11:25 Resp 17 12/07/24 11:25 BP 134/70 12/07/24 11:25 Pulse Ox 91 12/07/24 11:25 O2 Del Method Nasal Cannula 12/07/24 11:25 O2 Flow Rate 3 12/07/24 11:25 Discharge Plan Discharge Patient Disposition: Home Condition: Stable Prescriptions: New ipratropium-albuterol 0.5 mg-3 mg(2.5 mg base)/3 mL Solution For Nebulization 3 ml inhalation Q8H Qty: 180 0RF oseltamivir 75 mg Capsule 75 mg PO BID Qty: 6 0RF budesonide 0.5 mg/2 mL Suspension For Nebulization 0.5 mg inhalation BID.RESPIRATORY Qty: 60 0RF levofloxacin 750 mg tablet 750 mg PO Q24H 5 Days Qty: 5 0RF prednisone 10 mg tablet See Taper PO DIRECTED Qty: 42 0RF Taper: predniSONE 60-10 60 mg Daily for 2 Days and 0 Hour 50 mg Daily for 2 Days and 0 Hour 40 mg Daily for 2 Days and 0 Hour 30 mg Daily for 2 Days and 0 Hour 20 mg Daily for 2 Days and 0 Hour 10 mg Daily for 2 Days and 0 Hour Rx Instructions: see taper instructions Continued Sheree Aerosphere 160-9-4.8 mcg/actuation HFA aerosol inhaler 2 inh inhalation BID Qty: 32.1 1RF amlodipine-atorvastatin 10-40 mg tablet 1 tab PO DAILY Qty: 90 1RF venlafaxine [Effexor XR] 75 mg capsule,extended release 24hr 75 mg PO QAM Qty: 90 1RF valsartan-hydrochlorothiazide [Diovan HCT] 320-25 mg tablet 1 tab PO DAILY Qty: 90 1RF carvedilol 25 mg tablet 25 mg PO BID Qty: 180 1RF famotidine 20 mg tablet 20 mg PO BID Qty: 180 1RF albuterol sulfate 90 mcg/actuation HFA aerosol inhaler 1 puff inhalation Q4H PRN (Reason: shortness of breath or wheezing) Qty: 17 1RF gabapentin 300 mg capsule 300 mg PO .at bedtime PRN (Reason: pain) Qty: 90 1RF tramadol 50 mg tablet 100 mg PO .in AM Qty: 60 5RF clonidine HCl 0.1 mg tablet 0.1 mg PO Q12H PRN (Reason: hypertensive values) Qty: 60 0RF Rx Instructions: prn for BP> 160/90 spironolactone 25 mg tablet 25 mg PO DAILY prednisone 20 mg tablet 20 mg PO DAILY PRN (Reason: copd) hydralazine 25 mg tablet 25 mg PO Q12H PRN (Reason: hypertension) fluticasone propionate 50 mcg/actuation spray,suspension 2 spray intranasal DAILY PRN (Reason: allergies) ondansetron 4 mg tablet,disintegrating 4 mg PO Q8H PRN (Reason: nausea and vomiting) Qty: 10 0RF Discontinued sulfamethoxazole-trimethoprim 800-160 mg tablet 1 tab PO BID Qty: 14 0RF Discharge Orders: Discharge Order (Routine); Ordered 12/07/24 Ordered By: Bob Beck Other Ambulatory Orders: DME: Oxygen (Order) Location: None Selected Ordered By: Bob Beck Referrals: Sushila Begum FNP-C [Primary Care Provider] - 7-10 days Discharge Diet: Cardiac Discharge Activity: Resume usual activity and Increase activity as tolerated Patient Instructions: Opioid Safety Activity Restrictions/Additional Instructions: Please try to quit smoking. Use nebulizer with Pulmicort twice daily and DuoNeb 3 times a day. Take steroid taper as prescribed. Take antibiotic Levaquin for next 5 days. Discharge Attestations Time Spent in Discharge Care*: greater than 30 min Specific Discharge Activities: educating patient, discussing with pcp/other providers, discussing with insurance case manager/social workers/dc planners, documenting/other paperwork and evaluating patient/reviewing data Status at Discharge: Cognitive status at discharge: cognitively intact, Behavioral status at discharge: cooperative, Functional status at discharge: independent ambulation, Overall status at discharge: patient is back to baseline Quality Metrics Clinical Quality Measures [ No reported AMI, CVA or VTE this stay] Coding Level of Care Code 73661 Total time (in minutes) for Discharge: 60 Diagnoses Influenza A J10.1 COPD with exacerbation J44.1 Moderate persistent asthma with acute exacerbation J45.41 Asthma complication type: with acute exacerbation Asthma persistence: persistent Asthma severity: moderate Hypoxia R09.02
--- NOTE | 2024-12-07 12:04 | PC.NURSE ---
Faxed [facility] patient information for oxygen at home at this time.
== END 2024-12-07 14:45 | disposition home or self-care (01) | DRG 193 ==
LOC: ER 06:54 → MEDSURG 07:08
PROVIDERS: Internal Medicine; Admitting Provider Internal Medicine; Emergency Provider Family Medicine; PCP Nurse Practitioner; Visit Provider Student in an Organized Health Care Education/Training Program
DX: J10.1 Influenza due to other identified influenza virus with other respiratory manifestations (principal); J96.91 Respiratory failure, unspecified with hypoxia; J44.1 Chronic obstructive pulmonary disease with (acute) exacerbation; J45.41 Moderate persistent asthma with (acute) exacerbation; I47.10 Supraventricular tachycardia, unspecified; F17.210 Nicotine dependence, cigarettes, uncomplicated; Z79.51 Long term (current) use of inhaled steroids; Z79.891 Long term (current) use of opiate analgesic; Z79.52 Long term (current) use of systemic steroids; M17.12 Unilateral primary osteoarthritis, left knee; K21.9 Gastro-esophageal reflux disease without esophagitis; E78.5 Hyperlipidemia, unspecified; F41.9 Anxiety disorder, unspecified; H35.30 Unspecified macular degeneration
CPT/HCPCS: 36415; 36600; 71045; 80048; 80051; 80053; 82330; 82607; 82746; 82805; 83540; 83550; 83735; 84145; 85025; 86140; 87400; 93005; 94640; 94664; 94760; 96372; 96374; 99285; J1650; J1940; J2405; J2919; J7626; Q0162

== ENCOUNTER 2025-02-06 09:01 | Emergency (ER) | payer MEDICARE, OTHER, SELFPAY ==
[2025-02-06 09:32] VITALS: BP 185/77; PULSE 67; RESP 16; TEMP 36.7; O2SAT 97; BMI 29.9
--- NOTE | 2025-02-06 09:40 | US_ITS ---
WS: [id number] ULTRASOUND ABDOMEN LIMITED CLINICAL INFORMATION: Right upper quadrant pain, concern for cholecystitis COMPARISON: None. FINDINGS: Liver Size: Normal. Craniocaudal length: 14.7 cm. Echogenicity: Normal. Surface nodularity: None. Mass (size and location): None. Bile ducts Intrahepatic ducts: Normal. Common bile duct diameter: 0.5 cm. Gallbladder Cholelithiasis Gallstones: Present Gallbladder sludge: None. Gallbladder wall thickening: Contracted gallbladder with slight gallbladder wall thickening Pericholecystic fluid: None. Sonographic Rodriguez sign: Absent. Pancreas Normal as visualized. Right kidney: Normal. Hydronephrosis: None. Size: 11.2 cm x 4.9 cm x 3.3 cm. Abdominal aorta and IVC Visualized portions are normal. Ascites: None. US/US gall bladder [id number] IMPRESSION: 1. Normal liver. 2. Cholelithiasis. Gallbladder is contracted with slight gallbladder wall thic kening. No pericholecystic fluid. 3. Normal common bile duct. 4. No hydronephrosis in the RIGHT kidney
[2025-02-06 10:35] LABS: Basophils % 0.5 %; Eosinophils # 0.2 10^3/uL (0.0-0.8); Hematocrit 38.1 % (36-47); Lymphocytes # 1.7 10^3/uL (0.8-4.8); Lymphocytes % 26.3 %; Mean Corpuscular Hemoglobin 30.4 pg (27-33); Mean Platelet Volume 9.6 fL (7.4-10.4); Monocytes # 0.4 10^3/uL (0.2-0.9); Monocytes % 6.8 %; Neutrophils # 4.01 10^3/uL (1.8-7.7); Neutrophils % 63.1 %; Nucleated Red Blood Cells % 0 %; Platelet Count 227 10^3/cmm (157-399); Red Blood Count 4.01 10^6/uL (3.85-5.65); Red Cell Distribution Width 15.6 % (12.1-15.1); White Blood Count 6.35 10^3/uL (3.29-11.43)
[2025-02-06 10:52] LABS: Lactic Sepsis W/Reflex 1.3 mmol/L (0.5-2.2)
[2025-02-06 10:53] LABS: Alanine Aminotransferase 17 U/L (0-33); Albumin Level 4.2 g/dL (3.5-5.2); Alkaline Phosphatase 66 U/L (35-105); Anion Gap 12.8 (5-19); Aspartate Amino Transferase 14 U/L (0-32); Blood Urea Nitrogen 13 mg/dL (8-23); Calcium 8.6 mg/dL (8.5-10.5); Carbon Dioxide 26 mmol/L (22-29); Chloride 109 mmol/L (98-107); Creatinine Clr Calc Pharmacy 62.6714; Globulin 2.2 g/dL (1.3-4.6); Glomerular Filtration Rate 99.1 mL/min (90-130); Glucose 91 mg/dL (65-115); Lipase 34 U/L (13-60); Osmolality Calculated 298 mOsm/kg (285-295); Potassium 3.8 mmol/L (3.5-5.1); Sodium 144 mmol/L (136-145); Total Bilirubin 0.2 mg/dL (0.15-1.2); Total Protein 6.4 g/dL (6.6-8.7)
--- NOTE | 2025-02-06 13:33 | ECG_ITS ---
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 Measurements Intervals [place] Rate: 58 P: 61 DE: 170 QRS: 47 QRSD: 100 T: 38 QT: 435 QTc: 430 Interpretive Statements SINUS BRADYCARDIA POSSIBLE LEFT ATRIAL ENLARGEMENT [-0.1mV P-WAVE IN V1/V2] Compared to ECG 12/05/2024 05:31:25 Sinus rhythm no longer present Electronically Signed On 02-07-2025 13:08:25 CDT by Edelmira Keller M.D. [email or web address]
[2025-02-06 13:58] LABS: Troponin(5th) Baseline < 6 ng/L (0-10)
--- NOTE | 2025-02-06 14:09 | ED_ITS ---
HPI - Abdominal Pain 2 General: Chief Complaint: Abdominal Pain Stated Complaint: abd pain Time Seen by Provider: 02/06/25 09:08 History of Present Illness: 69-year-old female who presents emergenc y room with right upper quadrant and epigastric pain that she is associated with eating. This has been going on for some time now but was was worse this morning. She says they ate dinner last night and it started hurting him by this morning she was hurting quite a bit. She has had some nausea but no vomiting. She says she feels like nominee might make it feel better. Related Data Home Medications ?Medication ?Instructions ?Recorded ?Confirmed fluticasone propionate 50 2 spray intranasal DAILY PRN 12/05/24 02/06/25 mcg/actuation nasal allergies spray,suspension hydralazine 25 mg tablet 25 mg PO Q12H PRN hypertensi on 12/05/24 12/26/24 spironolactone 25 mg tablet 25 mg PO DAILY 12/05/24 famotidine 20 mg tablet 20 mg PO BID PRN acid reflux 02/06/25 02/06/25 venlafaxine 75 mg capsule,extended 75 mg PO DAILY 01/2702/06/25 release 24 hr Previous Rx's ?Medication ?Instructions ?Recorded clonidine HCl 0.1 mg tablet 0.1 mg PO Q12H PRN hyperte nsive 09/12/23 values #60 tabs albuterol sulfate 90 mcg/actuation 1 puff inhalation Q 4H PRN 09/16/24 aerosol inhaler shortness of breath or wheez ing #17 grams amlodipine 10 mg-atorvastatin 40 1 tab PO DAILY #90 ta bs 09/16/24 mg tablet budesonide 160 mcg-glycopyr 9 2 inh inhalation BID #32 .1 grams 09/16/24 mcg-formot 4.8 mcg/actuation HFA inhaler (Breztri Aerosphere) carvedilol 25 mg tablet 25 mg PO BID heart #180 tab s 09/16/24 gabapentin 300 mg capsule 300 mg PO .at bedtime PRN pa in #90 09/16/24 caps tramadol 50 mg tablet 100 mg (2 x 50 mg) PO .in AM pain 09/16/24 #60 tabs valsartan 320 1 tab PO DAILY #90 tabs 08/29 07/22 mg-hydrochlorothiazide 25 mg tablet (Diovan HCT) ondansetron 4 mg disintegrating 4 mg PO Q8H PRN nausea and 11/04/24 tablet vomiting #10 tabs ipratropium 0.5 mg-albuterol 3 mg 3 ml inhalation Q8H Shortness Of 12/10/24 (2.5 mg base)/3 mL nebulization Breath #180 mL soln escitalopram oxalate 10 mg tablet 10 mg PO DAILY #90 t abs 12/22/24 hydrocodone 5 mg-acetaminophen 325 1 tab PO Q6H PRN pa in #20 tabs 02/06/25 mg tablet ondansetron 4 mg disintegrating 4 mg PO Q8H PRN nausea and 02/06/25 tablet vomiting #10 tabs Allergies Allergy/AdvReac Type Severity Reaction Status Date / Time Penicillins Allergy ALGY-Anaphy Verified 12/26/24 17:26 laxis Review of Systems 2 Narrative: Constitutional symptoms: Negative except as documented in HPI. Skin symptoms: Negative except as documented in HPI. Eye symptoms: Negative except as documented in HPI. ENMT symptoms: Negative except as documented in HPI. Respiratory symptoms: Negative except as documented in HPI. Cardiovascular symptoms: Negative except as documented in HPI. Gastrointestinal symptoms: Negative except as documented in HPI. Genitourinary symptoms: Negative except as documented in HPI. Musculoskeletal symptoms: Negative except as documented in HPI. Neurologic symptoms: Negative except as documented in HPI. Psychiatric symptoms: Negative except as documented in HPI. Endocrine symptoms: Negative except as documented in HPI. PFSH ED 2 PFSH: Medical History COPD with exacerbation Smoker Left knee pain Localized osteoarthritis of left knee Allergic rhinitis due to allergen GERD (gastroesophageal reflux disease) Hyperlipidemia Opacity of lung on imaging study COPD (chronic obstructive pulmonary disease) Anxiety Early onset macular degeneration SVT (supraventricular tachycardia) Asthma Hypertension Traumatic partial tear of left biceps tendon Surgical History History of tonsillectomy and adenoidectomy Hx of hysterectomy History of cardiac radiofrequency ablation Family History Father Alcoholism Cancer esophageal Mother CAD (coronary artery disease) [place] Hypertension Grandfather CAD (coronary artery disease) [place] Family/Other CAD (coronary artery disease) [place] - uncle and aunt Alcoholism Cancer aunt--esophageal Sister Hypertension Denies family history of Diabetes Clotting disorder Dementia Hyperlipidemia Chronic kidney disease (CKD) Anesthesia complication Bleeding disorder Lung disease Stroke Social History Smoking and tobacco/nicotine status: current every day tobacco/nicotine user Alcohol intake: never Substance/Drug Use: never Caregiver/support person: No Lives independently: Yes Household members: none Marital status: Single Highest education level completed: Some College, No Degree service: No Current occupational status: employed 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 Skin: Warm, dry. Head: Normocephalic, atraumatic. Neck: Supple, trachea midline. Eye: Extraocular movements are intact. Ears, nose, mouth and throat: mucosa moist. Cardiovascular: Regular, Normal peripheral perfusion. Respiratory: Lungs are clear to auscultation, respirations are non-labored, breath sounds are equal, Symmetrical chest wall expansion. Gastrointestinal: Soft, Nontender, Non distended Musculoskeletal: Normal ROM, no deformity. Neurological: Alert and oriented, No focal neurological deficit observed. Psychiatric: Cooperative, appropriate mood & affect. Course 2 Vital Signs: Vital signs: Vital Signs Temperature 98.0 F 02/06/25 09:32 Pulse Rate 57 L 02/06/25 14:31 Respiratory Rate 16 02/06/25 14:31 Blood Pressure 194/81 02/06/25 14:31 Pulse Oximetry 96 02/06/25 14:31 Oxygen Delivery Me thod Room Air 02/06/25 09:32 MDM - Abdominal Pain Medical Decision Making Differential diagnosis for patient presenting with right upper quadrant abdominal pain including but not limited to and based on the above HPI, review of systems and physical exam: Cholelithiasis or cholecystitis. Hepatitis. Diverticulitis. Constipation. Ureterolithiasis. Urinary tract infection. Appendicitis. colitis. small bowel obstruction. crohn's flare. pancreatitis. gastritis. peptic ulcer. Aortic disection. Workup including imaging and lab work replaced based on the above differential, history and exam to evaluate differential diagnosis EKG: Time 1340. Rate 58. Sinus bradycardia, No ST-T changes, no ectopy, normal [place] & QRS intervals, This was reviewed and interpreted by myself the ER physician at 1345. Lab Review: Laboratory results were reviewed and interpreted by myself the emergency room physician. No leukocytosis. No anemia. No renal failure. Liver enzymes are normal. Serial troponins are negative. Ultrasound gallbladder shows stones but no evidence of cholecystitis. This was reviewed and interpreted by myself the emergency room physician. I also reviewed the radiology report. I reviewed the patient's medical record. Reexamination: Patient remained stable. No increased work of breathing. No altered mental status. No focal motor deficits. Discussed patient that she is having likely biliary colic and that she will follow-up with general surgery. Consultation: I spoke with Dr. Caballero who agrees with the plan of pain control and he will follow-up with her in clinic. Assessment and plan: Biliary colic - Discharged home - Discussed plan with patient. Answered any questions. - Evaluation and treatment of this problem were appropriate in the emergency setting. Lab Data 02/06/25 10:29 02/06/25 10:29 Labs/Radiology: Radiology Impressions Gallbladder Ultrasound 02/06/25 09:40 IMPRESSION: 1. Normal liver. 2. Cholelithiasis. Gallbladder is contracted with slight gallbladder wall thickening. No pericholecystic fluid. 3. Normal common bile duct. 4. No hydronephrosis in the RIGHT kidney Laboratory Results WBC 6.35 10^3/uL (3.29-11.43) 02/06/25 10:29 RBC 4.01 10^6/uL (3.85-5.65) 02/06/25 10:29 Hgb 12.20 g/dL (11.27-16.99) 02/06/25 10:29 Hct 38.1 % (36-47) 02/06/25 10:29 MCV 95.0 fl (85-98) 02/06/25 10:29 MCH 30.4 pg (27-33) 02/06/25 10:29 MCHC 32.0 g/dL (30-55) 02/06/25 10:29 RDW 15.6 % (12.1-15.1) H 02/06/25 10:29 Plt Count 227 10^3/cmm (157-399) 02/06/25 10: MPV 9.6 fL (7.4-10.4) 02/06/25 10: Neut % (Auto) 63.1 % 02/06/25 10: Lymph % (Auto) 26.3 % 02/06/25 10: [place] % (Auto) 6.8 % 02/06/25 10: Eos % (Auto) 3.0 % 02/06/25 10: Baso % (Auto) 0.5 % 02/06/25 10: Neut # (Auto) 4.01 10^3/uL (1.8-7.7) 02/06/25 10: Lymph # (Auto) 1.7 10^3/uL (0.8-4.8) 02/06/25 10: [place] # (Auto) 0.4 10^3/uL (0.2-0.9) 02/06/25 10: Eos # (Auto) 0.2 10^3/uL (0.0-0.8) 02/06/25 10: Baso # (Auto) 0.0 10^3/uL (0.0-0.1) 02/06/25 10: Nucleated RBC % (auto) 0 % 02/06/25 10: Nucleated RBCs # 0.0 /100WBC 02/06/25 10:29 Sodium 144 mmol/L (136-145) 02/06/25 10: Potassium 3.8 mmol/L (3.5-5.1) 02/06/25 10: Chloride 109 mmol/L (98-107) H 02/06/25 10: Carbon Dioxide 26 mmol/L (22-29) 02/06/25 10: Anion Gap 12.8 (5-19) 02/06/25 10:29 BUN 13 mg/dL (8-23) 02/06/25 10: Creatinine 0.6 mg/dL (0.5-0.9) 02/06/25 10: GFR Calculation 99.1 mL/min (90-130) 02/06/25 10: Glucose 91 mg/dL (65-115) 02/06/25 10:29 Calculated Osmolality 298 mOsm/kg (285-295) H 02/06/25 10:29 Lactic Acid 1.3 mmol/L (0.5-2.2) 02/06/25 10:29 Calcium 8.6 mg/dL (8.5-10.5) 02/06/25 10:29 Total Bilirubin 0.2 mg/dL (0.15-1.2) 02/06/25 10:29 AST 14 U/L (0-32) 02/06/25 10:29 ALT 17 U/L (0-33) 02/06/25 10:29 Alkaline Phosphatase 66 U/L (35-105) 02/06/25 10:29 Troponin T Baseline < 6 ng/L (0-10) 02/06/25 10:29 Troponin T 120 Minute 6.28 ng/L (0-10) 02/06/25 13:53 Delta Troponin T 0.01734 ABS# (0-10) 02/06/25 13:53 Total Protein 6.4 g/dL (6.6-8.7) L 02/06/25 10:29 Albumin 4.2 g/dL (3.5-5.2) 02/06/25 10:29 Globulin 2.2 g/dL (1.3-4.6) 02/06/25 10:29 Lipase 34 U/L (13-60) 02/06/25 10:29 All radiology interpretation(s) finalized by discharge Discharge Plan Discharge Patient Disposition: Home Clinical Impression: Biliary colic Condition: Stable Prescriptions: New hydrocodone-acetaminophen 5-325 mg tablet 1 tab PO Q6H PRN (Reason: pain) Qty: 20 0RF ondansetron 4 mg tablet,disintegrating 4 mg PO Q8H PRN (Reason: nausea and vomiting) Qty: 10 0RF No Action escitalopram oxalate 10 mg tablet 10 mg PO DAILY Qty: 90 1RF Rx Instructions: anxiety Breztri Aerosphere 160-9-4.8 mcg/actuation HFA aerosol inhaler 2 inh inhalation BID Qty: 32.1 1RF amlodipine-atorvastatin 10-40 mg tablet 1 tab PO DAILY Qty: 90 1RF valsartan-hydrochlorothiazide [Diovan HCT] 320-25 mg tablet 1 tab PO DAILY Qty: 90 1RF carvedilol 25 mg tablet 25 mg PO BID Qty: 180 1RF albuterol sulfate 90 mcg/actuation HFA aerosol inhaler 1 puff inhalation Q4H PRN (Reason: shortness of breath or wheezing) Qty: 17 1RF gabapentin 300 mg capsule 300 mg PO .at bedtime PRN (Reason: pain) Qty: 90 1RF tramadol 50 mg tablet 100 mg PO .in AM Qty: 60 5RF ipratropium-albuterol 0.5 mg-3 mg(2.5 mg base)/3 mL solution for nebulization 3 ml inhalation Q8H Qty: 180 2RF clonidine HCl 0.1 mg tablet 0.1 mg PO Q12H PRN (Reason: hypertensive values) Qty: 60 0RF Rx Instructions: prn for BP> 160/90 spironolactone 25 mg tablet 25 mg PO DAILY hydralazine 25 mg tablet 25 mg PO Q12H PRN (Reason: hypertension) fluticasone propionate 50 mcg/actuation spray,suspension 2 spray intranasal DAILY PRN (Reason: allergies) ondansetron 4 mg tablet,disintegrating 4 mg PO Q8H PRN (Reason: nausea and vomiting) Qty: 10 0RF venlafaxine 75 mg capsule,extended release 24hr 75 mg PO DAILY famotidine 20 mg tablet 20 mg PO BID PRN (Reason: acid reflux) Discharge Orders: Discharge ED (Routine); Ordered 02/06/25 Ordered By: Selene Collier Referrals: Shahzad Caballero MD [Physician] - 4-7 days (Please call for a follow-up appointment.) Sushila Begum, [employer] [Primary Care Provider] - Discharge Diet: As Directed Discharge Activity: Increase activity as tolerated Patient Instructions: Biliary Colic (ED), Low Fat Diet (ED), Abdominal Pain (ED), Opioid Safety, Pain Management Activity Restrictions/Additional Instructions: Thank you for choosing [facility] for your healthcare needs today. Please realize this is an emergency room and that we are providing you with a medical screening exam and this may not be complete and all inclusive of all the testing and or work up that you may need to determine your ailment or severity of your illness. You have been screened and evaluated and felt safe for discharge. Health conditions do change or evolve sometimes and as such it is important that you follow up with your Primary Doctor to be re checked, 3-5 days is a general good time frame for follow up. You are always welcome to return to the ED for re assessment if your symptoms are worsening or you have new concerns Print Language: Gabonese Coding Level of Care Code ED Medical Technician Assistant for Johnny Mcgowan
[2025-02-06 14:18] LABS: Troponin 5 2HR 6.28 ng/L (0-10); Troponin 5 2HR Delta 0.28001 ABS# (0-10)
[2025-02-06 14:31] VITALS: BP 194/81; PULSE 57; RESP 16; O2SAT 96
== END 2025-02-06 14:17 | disposition home or self-care (01) ==
PROVIDERS: Emergency Provider Emergency Medicine; PCP Nurse Practitioner
DX: K80.50 Calculus of bile duct without cholangitis or cholecystitis without obstruction (principal); Z72.0 Tobacco use; J44.9 Chronic obstructive pulmonary disease, unspecified; E78.5 Hyperlipidemia, unspecified; I10 Essential (primary) hypertension
CPT/HCPCS: 36415; 76705; 80053; 83605; 83690; 84484; 85025; 93005; 99284

== ENCOUNTER → 2025-02-25 14:47 | Outpatient (BNVA) | payer MEDICARE, OTHER, SELFPAY | PROVIDERS: PCP Nurse Practitioner; Visit Provider Student in an Organized Health Care Education/Training Program | DX: K82.9 Disease of gallbladder, unspecified (principal) | CPT/HCPCS: 99204 ==

== ENCOUNTER 2025-03-05 07:09 | Day surgery (SDC) | payer MEDICARE, OTHER, SELFPAY ==
[2025-03-05] VITALS (13 sets, daily range): BP systolic 167–192; BP diastolic 63–87; PULSE 62–75; RESP 18; TEMP 36.2–36.6; O2SAT 90–99; BMI 29.2
--- NOTE | 2025-03-05 08:23 | ANES.PREANE2 ---
Pre-Anesthetic Assessment Height/Weight: Height 5 ft 2 in Weight 160 lb Temp Pulse Resp BP Pulse Ox O2 Del Method 97.3 F L 62 18 173/78 97 Room Air 03/05/25 07:44 03/05/25 07:44 03/05/25 07:44 03/05/25 07:44 03/05/25 07:44 03/05/25 07:51 Preop Diagnosis: Chronic cholecystitis Operation Date: 03/05/25 08:45 Proposed Procedures p Laparoscopic Cholecystectomy 02499, K82.9(Not Applicable) - Shahzad Caballero MD Was Beta Jesse taken within 24 hours: Yes Last intake: Intake Last Liquid Date 03/04/25 Last Liquid Time 22:00 Last Solid Date 03/04/25 Last Solid Time 18:30 Social Tobacco and No alcohol Exam alert, oriented x 3, clear to auscultation bilaterally and regular rate & rhythm Airway Submandibular: within normal limits Cervical ROM: within normal limits Mallampati: Class III Dentition: full Comments: Comments: Poor dentition, denies any loose Anesthetic Plan ASA status: 3 Anesthesia: General Other: No prior issues with anesthesia NPO since yesterday evening History of hypertension on carvedilol, spironolactone, valsartan and hydralazine. Preop BP 173/78 Asthma and COPD. Still smoking GERD, controlled with Pepcid. She took this this morning Recent labs reviewed and acceptable for procedure Plan for general anesthesia Medications/Allergies Home Medications ?Medication ?Instructions ?Recorded ?Confirmed ?Last Taken ?Type albuterol sulfate 90 mcg/actuation 1 puff inhalation Q4H PRN 09/16/24 03/04/25 03/04/25 Rx aerosol inhaler shortness of breath or wheezing #17 grams amlodipine 10 mg-atorvastatin 40 1 tab PO DAILY #90 tabs 09/16/24 03/04/25 03/04/25 Rx mg tablet budesonide 160 mcg-glycopyr 9 2 inh inhalation BID #32.1 grams 09/16/24 03/04/25 03/05/25 Rx mcg-formot 4.8 mcg/actuation HFA inhaler (Breztri Aerosphere) carvedilol 25 mg tablet 25 mg PO BID heart #180 tabs 09/16/24 03/04/25 03/05/25 Rx gabapentin 300 mg capsule 300 mg PO .at bedtime PRN pain #90 09/16/24 03/04/25 03/04/25 Rx caps tramadol 50 mg tablet 100 mg (2 x 50 mg) PO .in AM pain 09/16/24 03/04/25 03/05/25 Rx #60 tabs valsartan 320 1 tab PO DAILY #90 tabs 09/16/24 03/04/25 03/04/25 Rx mg-hydrochlorothiazide 25 mg tablet (Diovan HCT) fluticasone propionate 50 2 spray intranasal DAILY PRN 12/05/24 03/04/25 03/04/25 History mcg/actuation nasal allergies spray,suspension spironolactone 25 mg tablet 25 mg PO DAILY 12/05/24 03/04/25 03/04/25 History ipratropium 0.5 mg-albuterol 3 mg 3 ml inhalation Q8H Shortness Of 12/10/24 03/04/25 03/04/25 Rx (2.5 mg base)/3 mL nebulization Breath #180 mL soln escitalopram oxalate 10 mg tablet 10 mg PO DAILY #90 tabs 12/22/24 03/04/25 03/04/25 Rx famotidine 20 mg tablet 20 mg PO BID PRN acid reflux 02/06/25 03/04/25 03/04/25 History hydralazine 25 mg tablet 25 mg PO Q12H PRN hypertension #60 02/16/25 03/04/25 03/04/25 Rx tabs ondansetron 4 mg disintegrating 4 mg PO Q8H PRN nausea and 02/16/25 03/04/25 03/04/25 Rx tablet vomiting #30 tabs Allergies Allergy/AdvReac Type Severity Reaction Status Date / Time Penicillins Allergy ALGY-Anaphy Verified 03/04/25 09:41 laxis [facility] Anesthesia Medical History COPD with exacerbation Smoker Left knee pain Localized osteoarthritis of left knee Allergic rhinitis due to allergen GERD (gastroesophageal reflux disease) Hyperlipidemia Opacity of lung on imaging study COPD (chronic obstructive pulmonary disease) Anxiety Early onset macular degeneration SVT (supraventricular tachycardia) Asthma Hypertension Traumatic partial tear of left biceps tendon Surgical History History of tonsillectomy and adenoidectomy Hx of hysterectomy History of cardiac radiofrequency ablation Family History Father Alcoholism Cancer esophageal Mother CAD (coronary artery disease) [place] Hypertension Grandfather CAD (coronary artery disease) [place] Family/Other CAD (coronary artery disease) [place] - uncle and aunt Alcoholism Cancer aunt--esophageal Sister Hypertension Denies family history of Diabetes Clotting disorder Dementia Hyperlipidemia Chronic kidney disease (CKD) Anesthesia complication Bleeding disorder Lung disease Stroke Social History Smoking and tobacco/nicotine status: current every day tobacco/nicotine user Alcohol intake: never Substance/Drug Use: never Caregiver/support person: No Lives independently: Yes Household members: none Marital status: Single Highest education level completed: Some College, No Degree service: No Current occupational status: employed 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
[2025-03-05] MEDS: sodium chloride 0.9% 1,000 ML 30 ML IV (08:27)
[2025-03-05] MEDS: VANCOMYCIN ADD-Vantage 1,000 MG in 0.9% NaCl ADD-Vantage 250 ML 250 MG IV (08:31)
--- NOTE | 2025-03-05 09:15 | W.PM.OPSUD ---
Surgery/Procedure H&P Update DATE OF PROCEDURE: March 05, 2025 DATE H&P PERFORMED: 02/25/25 H&P UPDATE INFORMATION: I have reviewed H&P completed within last 30 days, I have examined patient prior to procedure and No changes to prior documentation PREOP DIAGNOSIS: Chronic cholecystitis PLANNED PROCEDURE: Operation Date: 03/05/25 08:45 Proposed Procedures p Laparoscopic Cholecystectomy 48878, K82.9(Not Applicable) - Shahzad Caballero MD
[2025-03-05] MEDS: lidocaine-epi 1% PF 1:200,000 30 mL SDV INJECTION (09:56)
--- NOTE | 2025-03-05 10:35 | PM.OP ---
Operative Report Date of procedure: March 05, 2025 Pre-op diagnosis: Chronic cholecystitis Post-op diagnosis: same Post-op findings: Contracted and inflamed gallbladder filled with stones Procedure done: Laparoscopic cholecystectomy Implants: N/A Specimens removed/disposition: Gallbladder sent to pathology Pathology: Gallbladder sent to pathology Surgeon: Shahzad Caballero MD Detective Investigator: N/A Anesthesia: General Estimated blood loss (mL): 10 Complications: N/A Findings: Gallbladder inflamed and contracted consistent with chronic cholecystitis. Gallbladder filled with stones. Condition: stable Disposition: same day Brief History: 69-year-old female who presented with chronic cholecystitis. Discussed risk and benefits and patient agreed to schedule laparoscopic cholecystectomy possible open. Procedure: I discussed the risks and benefits of laparoscopic cholecystectomy, and obtained consent prior to proceeding to the operating room. SCDs were utilized. Prophylactic antibiotics were administered. General anesthesia was induced. The patient was placed supine, and was prepped and draped in the usual sterile fashion. Insufflation to 15mmHg was achieved using a Veress needle at Maxwell's point. A 12mm optiview trocar was placed at the umbilicus under direct visualization. The left upper quadrant was inspected, and no injuries were noted. Two 5mm ports were placed in the right upper quadrant, and a 12mm working port was placed in the epigastrium. The gallbladder was then retracted cephalad through the lateral RUQ port, and the infundibulum grabbed through the medial RUQ port and retracted laterally. The gallbladder was inflammed consistent with the diagnosis of cholecystitis. I proceeded to score the peritoneum over the medial aspect of the gallbladder using a laparoscopic hook with electrocautery. Then the infundibulum was retracted medially in order to score the peritoneum over the lateral aspect of the galbladder. Using a combination of energy and blunt dissection with the [place] and a Kittner dissector, the cystic artery and cystic duct were dissected. I then proceeded to dissect the cystic plate in order to to achieve the critical view of safety. The cystic artery and the cystic duct were clipped three times (leaving two clips on the proximal end of both structures). I then proceeded to dissect the gallbladder off the liver using hook electrocautery. The specimen was placed in an endocatch bag and retrieved from the abdomen through the port on the epigastrium. I then irrigated the gallbladder fossa with 1L of NS to confirm adequate hemostasis and the absence of any bile leaks. The gallbladder fossa was then cauterized again. Prior to ending the laparoscopic portion, I examined the rest of the abdomen and did not find any abnormalities or injuries. The abdomen was then desufflated, and the 12mm port at the umbilicus was closed using 0 vicryl on a UR needle after irrigating copiously. Skin was closed using 4-0 monocryl and surgical glue. The patient woke up from anesthesia and transferred to PACU without any complications.
[2025-03-05] MEDS: hyDRALAzine 20 mg/mL INJ 1 mL 10 MG IVP (10:45)
--- NOTE | 2025-03-05 10:52 | SUR.PHASEI ---
No IV pain medication given in PACU, per Dr. Dockery due to low O2 sat.
[2025-03-05] MEDS: oxyCODONE 5 mg IR Tab/Cap PO (11:15)
--- NOTE | 2025-03-05 11:19 | SUR.PHASEII ---
11:15 warm blankets applied. PO pain medication given.
--- NOTE | 2025-03-05 13:10 | ANE.PACU2 ---
Inpatient post-anesthesia follow up: Airway intact: Yes Vital signs: Temperature 97.9 F Pulse Rate 65 Respiratory Rate 18 Blood Pressure 174/75 Pulse Oximetry 96 Oxygen Delivery Me thod Room Air Oxygen Flow Rate 2 Fraction of Inspir ed Oxygen Hydration adequate: Yes Nausea and vomiting: No Pain level: 1 Mental status: Baseline
== END 2025-03-05 13:10 | disposition home or self-care (01) ==
PROVIDERS: PCP Nurse Practitioner; Visit Provider Student in an Organized Health Care Education/Training Program
PROC: 0FT44ZZ Resection of Gallbladder, Percutaneous Endoscopic Approach (ICD-10-PCS; CPT 47562; principal; 2025-03-05 08:35)
DX: K80.10 Calculus of gallbladder with chronic cholecystitis without obstruction (principal); I10 Essential (primary) hypertension; J44.9 Chronic obstructive pulmonary disease, unspecified; K21.9 Gastro-esophageal reflux disease without esophagitis; E78.5 Hyperlipidemia, unspecified; F17.200 Nicotine dependence, unspecified, uncomplicated; Z88.0 Allergy status to penicillin; Z79.899 Other long term (current) drug therapy
CPT/HCPCS: 47562; 88304; A4216; J0360; J1100; J2250; J2405; J2704; J3010; J3370; J3490; J7030; J7050; J9999

== ENCOUNTER → 2025-03-19 13:56 | Outpatient (BNVA) | payer MEDICARE, OTHER, SELFPAY | PROVIDERS: PCP Nurse Practitioner; Visit Provider Student in an Organized Health Care Education/Training Program | DX: Z98.890 Other specified postprocedural states (principal); Z90.49 Acquired absence of other specified parts of digestive tract | CPT/HCPCS: 99024 ==

== ENCOUNTER → 2025-04-16 14:49 | Outpatient (BNVA) | payer MEDICARE, OTHER, SELFPAY | PROVIDERS: PCP Nurse Practitioner; Visit Provider Student in an Organized Health Care Education/Training Program | DX: K21.9 Gastro-esophageal reflux disease without esophagitis (principal); R12 Heartburn | CPT/HCPCS: 99214 ==

== ENCOUNTER 2025-05-19 11:16 | Day surgery (SDC) | payer MEDICARE, OTHER, SELFPAY ==
[2025-05-19 11:44] VITALS: BP 134/58; PULSE 62; RESP 16; TEMP 36.4; O2SAT 95; BMI 28.3
--- NOTE | 2025-05-19 12:16 | ANES.PREANE2 ---
Pre-Anesthetic Assessment Height/Weight: Height 1.57 m Weight 70.307 kg Temp Pulse Resp BP Pulse Ox O2 Del Method 97.6 F 62 16 134/58 95 Room Air 05/19/25 11:44 05/19/25 11:44 05/19/25 11:44 05/19/25 11:44 05/19/25 11:44 05/19/25 11:44 Operation Date: 05/19/25 12:45 Proposed Procedures p EGD with Biopsy 09834, K21.9(Not Applicable) - Shahzad Caballero MD Familial anesthetic complications: None Was Beta Jesse taken within 24 hours: N/A Was Clonidine taken within 24 hours: N/A Last intake: Intake Last Liquid Date 05/18/25 Last Liquid Time 23:45 Last Solid Date 05/18/25 Last Solid Time 21:00 Social Tobacco and No alcohol Exam alert, oriented x 3, clear to auscultation bilaterally and regular rate & rhythm Airway Mallampati: Class II Pulmonary Asthma and Chronic Obstructive Pulmonary Disease CV/HEM Hypertension SVT GI Gastroesophageal Reflux Disease Anesthetic Plan ASA status: 3 Anesthesia: MAC Risk of > 500 ml blood loss (7ml/kg in children): No Medications/Allergies Home Medications ?Medication ?Instructions ?Recorded ?Confirmed ?Last Taken ?Type albuterol sulfate 90 mcg/actuation 1 puff inhalation Q4H PRN 09/16/24 05/19/25 05/15/25 Rx aerosol inhaler shortness of breath or wheezing #17 grams amlodipine 10 mg-atorvastatin 40 1 tab PO DAILY #90 tabs 09/16/24 05/19/25 05/18/25 Rx mg tablet budesonide 160 mcg-glycopyr 9 2 inh inhalation BID #32.1 grams 09/16/24 05/19/25 05/19/25 Rx mcg-formot 4.8 mcg/actuation HFA inhaler (Breztri Aerosphere) carvedilol 25 mg tablet 25 mg PO BID heart #180 tabs 09/16/24 05/19/25 05/19/25 Rx fluticasone propionate 50 2 spray intranasal DAILY PRN 12/05/24 05/19/25 03/04/25 History mcg/actuation nasal allergies spray,suspension escitalopram oxalate 10 mg tablet 10 mg PO DAILY #90 tabs 12/22/24 05/19/25 05/18/25 Rx famotidine 20 mg tablet 20 mg PO BID PRN acid reflux 02/06/25 05/19/25 05/18/25 History ondansetron 4 mg disintegrating 4 mg PO Q8H PRN nausea and 02/16/25 05/19/25 03/04/25 Rx tablet vomiting #30 tabs valsartan 320 1 tab PO DAILY #90 tabs 03/31/25 05/19/25 05/18/25 Rx mg-hydrochlorothiazide 25 mg tablet (Diovan HCT) pantoprazole 40 mg tablet,delayed 40 mg PO BID 30 days #60 tabs 04/16/25 05/19/25 05/18/25 Rx release sucralfate 100 mg/mL oral 10 ml PO BID 30 days #600 mL 04/16/25 05/19/25 05/18/25 Rx suspension topiramate 25 mg tablet (Topamax) 25 mg PO BID #60 tabs 04/23/25 05/19/25 05/18/25 Rx tramadol 50 mg tablet 100 mg (2 x 50 mg) PO .in AM pain 04/23/25 05/19/25 05/18/25 Rx #60 tabs hydralazine 100 mg tablet 50 mg PO Q8H hypertension 05/15/25 05/19/25 05/18/25 History ipratropium 0.5 mg-albuterol 3 mg 3 ml inhalation Q8H PRN Shortness 05/15/25 05/19/25 05/14/25 History (2.5 mg base)/3 mL nebulization Of Breath soln Allergies Allergy/AdvReac Type Severity Reaction Status Date / Time Penicillins Allergy ALGY-Anaphy Verified 05/19/25 11:45 laxis Current Medications Generic Name Dose Route Start Last Admin Trade Name Freq PRN Reason Stop Dose Admin Sodium Chloride 1,000 mls @ 15 mls/hr 05/19/25 11:34 05/19/25 12:00 Sodium Chloride 0.9% IV 05/20/25 11:33 15 mls/hr .Q24H PRN Administration COLONOSCOPY FLUIDS PFSH Anesthesia Medical History COPD with exacerbation Smoker Left knee pain Localized osteoarthritis of left knee Allergic rhinitis due to allergen GERD (gastroesophageal reflux disease) Hyperlipidemia Opacity of lung on imaging study COPD (chronic obstructive pulmonary disease) Anxiety Early onset macular degeneration SVT (supraventricular tachycardia) Asthma Hypertension Traumatic partial tear of left biceps tendon Surgical History History of tonsillectomy and adenoidectomy Hx of hysterectomy History of cardiac radiofrequency ablation Family History Father Alcoholism Cancer esophageal Mother CAD (coronary artery disease) [place] Hypertension Grandfather CAD (coronary artery disease) [place] Family/Other CAD (coronary artery disease) [place] - uncle and aunt Alcoholism Cancer aunt--esophageal Sister Hypertension Denies family history of Diabetes Clotting disorder Dementia Hyperlipidemia Chronic kidney disease (CKD) Anesthesia complication Bleeding disorder Lung disease Stroke Social History Smoking and tobacco/nicotine status: current every day tobacco/nicotine user Alcohol intake: never Substance/Drug Use: never Caregiver/support person: No Lives independently: Yes Household members: none Marital status: Single Highest education level completed: Some College, No Degree service: No Current occupational status: employed 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
--- NOTE | 2025-05-19 12:36 | W.PM.OPSFHP ---
Same Day Surgery H&P Indication for Procedure/HPI DATE OF PROCEDURE: May 19, 2025 CHIEF COMPLAINT/INDICATIONFOR SURGICAL PROCEDURE: heartburn PREOP DIAGNOSIS: heartburn PLANNED PROCEDURE: Operation Date: 05/19/25 12:45 Proposed Procedures p EGD with Biopsy 63139, K21.9(Not Applicable) - Shahzad Caballero MD Medications/Allergies* Home Medications ?Medication ?Instructions ?Recorded ?Confirmed ?Type fluticasone propionate 50 2 spray intranasal DAILY PRN 12/05/24 05/19/25 History mcg/actuation nasal allergies spray,suspension famotidine 20 mg tablet 20 mg PO BID PRN acid reflux 02/06/25 05/19/25 History hydralazine 100 mg tablet 50 mg PO Q8H hypertension 05/15/25 05/19/25 History ipratropium 0.5 mg-albuterol 3 mg 3 ml inhalation Q8H PRN Shortness 05/15/25 05/19/25 History (2.5 mg base)/3 mL nebulization Of Breath soln Allergies/Adverse Reactions Allergy/AdvReac Type Severity Reaction Status Date / Time Penicillins Allergy ALGY-Anaphy Verified 05/19/25 11:45 laxis Current Medications: Generic Name Dose Route Start Last Admin Trade Name Freq PRN Reason Stop Dose Admin Sodium Chloride 1,000 mls @ 15 mls/hr 05/19/25 11:34 05/19/25 12:00 Sodium Chloride 0.9% IV 05/20/25 11:33 15 mls/hr .Q24H PRN Administration COLONOSCOPY FLUIDS Pertinent History/Comorbid Conditions* Medical History (Updated 04/16/25 @ 15:02 by Shahzad Caballero MD) COPD with exacerbation Smoker Left knee pain Localized osteoarthritis of left knee Allergic rhinitis due to allergen GERD (gastroesophageal reflux disease) Hyperlipidemia Opacity of lung on imaging study COPD (chronic obstructive pulmonary disease) Anxiety Early onset macular degeneration SVT (supraventricular tachycardia) Asthma Hypertension Traumatic partial tear of left biceps tendon Surgical History (Updated 05/26/22 @ 10:42 by Michael Hui MD) History of tonsillectomy and adenoidectomy Hx of hysterectomy History of cardiac radiofrequency ablation Family History (Updated 07/13/22 @ 08:50 by Judi Springer LPN) CAD (coronary artery disease) Mother PA Grandfather PA Family/Other PA - uncle and aunt Alcoholism Father Family/Other Cancer Father esophageal Family/Other aunt--esophageal Hypertension Mother Sister Denies family history of Diabetes Clotting disorder Dementia Hyperlipidemia Chronic kidney disease (CKD) Anesthesia complication Bleeding disorder Lung disease Stroke Social History Smoking and tobacco/nicotine status: current every day tobacco/nicotine user Alcohol intake: never Substance/Drug Use: never Caregiver/support person: No Lives independently: Yes Household members: none Marital status: Single Highest education level completed: Some College, No Degree service: No Current occupational status: employed 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
[2025-05-19 13:03] VITALS: BP 102/49; PULSE 65; RESP 10; TEMP 36.1; O2SAT 93
[2025-05-19 13:10] VITALS: BP 120/59; PULSE 64; RESP 18; O2SAT 95
[2025-05-19 13:20] VITALS: BP 145/68; PULSE 62; RESP 18; O2SAT 97
--- NOTE | 2025-05-19 16:05 | ANE.PACU2 ---
Inpatient post-anesthesia follow up: Airway intact: Yes Vital signs: Temperature 97.0 F Pulse Rate 62 Respiratory Rate 18 Blood Pressure 145/68 Pulse Oximetry 97 Oxygen Delivery Me thod Room Air Oxygen Flow Rate Fraction of Inspir ed Oxygen Hydration adequate: Yes Nausea and vomiting: No Pain level: 1 Mental status: Baseline
== END 2025-05-19 13:36 | disposition home or self-care (01) ==
PROVIDERS: PCP Nurse Practitioner; Visit Provider Student in an Organized Health Care Education/Training Program
PROC: 0DJ08ZZ Inspection of Upper Intestinal Tract, Via Natural or Artificial Opening Endoscopic (ICD-10-PCS; principal; 2025-05-19 12:45)
DX: K29.50 Unspecified chronic gastritis without bleeding (principal); J44.9 Chronic obstructive pulmonary disease, unspecified; I10 Essential (primary) hypertension; F17.200 Nicotine dependence, unspecified, uncomplicated; K21.9 Gastro-esophageal reflux disease without esophagitis; Z79.899 Other long term (current) drug therapy; Z88.0 Allergy status to penicillin; Z80.0 Family history of malignant neoplasm of digestive organs
CPT/HCPCS: 43239; 88305; J2704; J7030

== ENCOUNTER → 2025-06-04 14:26 | Outpatient (BNVA) | payer MEDICARE, OTHER, SELFPAY | PROVIDERS: PCP Nurse Practitioner; Visit Provider Student in an Organized Health Care Education/Training Program | DX: Z09 Encounter for follow-up examination after completed treatment for conditions other than malignant neoplasm (principal) | CPT/HCPCS: 99213 ==

== ENCOUNTER → 2025-07-16 16:43 | Outpatient (BNVA) | payer MEDICARE, OTHER, SELFPAY | PROVIDERS: PCP Nurse Practitioner; Visit Provider Nurse Practitioner | DX: I10 Essential (primary) hypertension (principal) | CPT/HCPCS: 80053; 80061; 84443 ==